=== PATIENT | male | born 1930 | race Caucasian/White ===

== ENCOUNTER 2017-06-20 23:53 | Inpatient (IN) | payer MEDICARE, OTHER ==
[~2017-06-20] VITALS: Ht 172.7 cm; Wt 71.1 kg
[~2017-06-20 23:53] MED LIST: AMIO200T PO; ASPI81TA3 PO; ERGO500014 PO; FURO40TA4 PO; HYDR-3498 PO; MAGN400T28 PO; MEGE400O4 PO; MIDO5TAB19 PO; TICA90TA PO; ZOC10 PO
--- NOTE | 2017-06-21 01:32 | ERD ---
ER Documentation Chief Complaint Chief Complaint shortness of breath when lying down x 2 days HPI The patient is a 87-year-old male, presenting to the ER because of orthopnea for the last 2 days. He has similar symptoms previously, complains of chronic bilateral leg edema. He denies fever, chills, complains of intermittent cough for the last 2-3 days, denies chest pain abdominal pain, vomiting, dysuria, diarrhea. He does not smoke nor drink Past medical history: Dyslipidemia, CAD, COPD, hypertension, atrial fibrillation , chronic kidney disease, ischemic cardiac myopathy with low EF, history of CHF past surgical history: Stent PCI ROS All systems reviewed and are negative except as per history of present illness. Medications Home Meds Active Scripts Midodrine* (Midodrine*) 5 Mg Tab, 2.5 MG PO BID@09,17 for 28 Days, BOX Prov:MENA FLORES MD 03/01/15 Megestrol Acetate* (Megace*) 400 Mg/10 Ml Susp, 400 MG PO BID for 28 Days, BOTTLE Prov:MENA FLORES MD 03/01/15 Amiodarone Hcl* (Amiodarone Hcl*) 200 Mg Tab, 200 MG PO DAILY for 28 Days, BOTTLE Prov:MENA FLORES MD 03/01/15 Reported Medications Ticagrelor* (Brilinta*) 90 Mg Tablet, 90 MG PO Q12, TAB 02/09/15 Simvastatin (Simvastatin) 10 Mg Tablet, 10 MG PO HS, TAB 02/09/15 Magnesium Oxide* (Magnesium Oxide*) 400 Mg Tablet, 400 MG PO BID, TAB 02/09/15 Furosemide* (Furosemide*) 40 Mg Tablet, 40 MG PO DAILY, TAB 02/09/15 Ergocalciferol* (Drisdol* (Vitamin D2)) 50,000 Unit Capsule, 05748 UNITS PO ON MON&FRI, CAP 02/09/15 Aspirin* (Aspirin* Chew) 81 Mg Tab.chew, 81 MG PO DAILY, TAB.CHEW 02/09/15 Hydrocodone Bit-Acetaminophen* ([place]*) 5-325 Mg Tab, 1 TAB PO Q4H Y for PAIN, TAB 02/09/15 Allergies Allergies: Coded Allergies: No Known Allergy (Unverified , 07/24/15) PMhx/Soc History of Surgery: Yes (stent, PCI) Anesthesia Reaction: No Hx Neurological Disorder: No Hx Respiratory Disorders: Yes (COPD, PNA) Hx Cardiac Disorders: Yes (HTN, AFIB, CAD WITH STENT PLACED, NSTEMI, ARF) Hx Psychiatric Problems: No Hx Miscellaneous Medical Probl: No Hx Alcohol Use: No Hx Substance Use: No Hx Tobacco Use: No Physical Exam Vitals Vital Signs Date Time Temp Pulse Resp B/P Pulse Ox O2 Delivery O2 Flow Rate FiO2 06/21/17 02:20 65 28 98 Nasal Cannula 30 06/21/17 01:30 Nasal Cannula 3.0 06/21/17 01:30 98.2 69 23 147/64 94 Nasal Cannula 3.0 06/21/17 01:30 Nasal Cannula 3 06/20/17 23:55 98.2 74 20 160/65 94 Physical Exam Const: No acute distress. Head: Atraumatic. Eyes: Normal Conjunctiva. ENT: Normal External Ears, Nose and Mouth. Neck: Full range of motion. No meningismus. Resp: Bibasilar crackle, bilateral expiratory wheezes Cardio: Regular rate and rhythm. Abd: Soft, non distended, normal bowel sounds, non tender. Skin: No petechiae or rashes. Back: No midline or flank tenderness. Ext: Bilateral leg edema, no calf tenderness Neur: Awake and alert. No focal deficit Psych: Normal Mood and Affect. Result Diagram: 06/21/1715406/21/17154 Results 24 hrs Laboratory Tests Test 06/21/17 01:55 White Blood Count 10.310^3/ul Red Blood Count 3.3310^6/ul Hemoglobin 9.8g/dl Hematocrit 29.7% Mean Corpuscular Volume 89.2fl Mean Corpuscular Hemoglobin 29.4pg Mean Corpuscular Hemoglobin Concent 33.0g/dl Red Cell Distribution Width 14.6% Platelet Count 55339^3/UL Mean Platelet Volume 10.0fl Neutrophils % 70.2% Lymphocytes % 18.0% Monocytes % 9.5% Eosinophils % 1.1% Basophils % 0.7% Nucleated Red Blood Cells % 0.0/100WBC Neutrophils # 7.310^3/ul Lymphocytes # 1.910^3/ul Monocytes # 1.010^3/ul Eosinophils # 0.110^3/ul Basophils # 0.110^3/ul Nucleated Red Blood Cells # 0.010^3/ul Prothrombin Time 13.7Sec Prothrombin Time Ratio 1.1 INR International Normalized Ratio 1.04 Activated Partial Thromboplast Time 28.6Sec Sodium Level 134mmol/L Potassium Level 4.0mmol/L Chloride Level 92mmol/L Carbon Dioxide Level 36mmol/L Anion Gap 10 Blood Urea Nitrogen 23mg/dl Creatinine 1.26mg/dl Glucose Level 111mg/dl Calcium Level 8.9mg/dl Total Bilirubin 0.5mg/dl Direct Bilirubin 0.00mg/dl Indirect Bilirubin 0.5mg/dl Aspartate Amino Transf (AST/SGOT) 42IU/L Alanine Aminotransferase (ALT/SGPT) 51IU/L Alkaline Phosphatase 114IU/L Troponin I 0.016ng/ml B-Type Natriuretic Peptide 653PG/ML Total Protein 6.9g/dl Albumin 3.5g/dl Globulin 3.40g/dl Albumin/Globulin Ratio 1.02 Current Medications Medications (Trade) Dose Ordered Sig/Jet Route PRN Reason Start Time Stop Time Status Last Admin Dose Admin Levalbuterol (Xopenex Neb) 1.25 mg ONCE ONCE N 06/21/17 02:00 06/21/17 02:01 DC 06/21/17 02:26 Ipratropium [place] (Atrovent 0.02% (Neb)) 0.5 mg ONCE ONCE HHN 06/21/17 02:00 06/21/17 02:01 DC 06/21/17 02:26 Furosemide (Lasix) 40 mg ONCE ONCE IV 06/21/17 04:30 06/21/17 04:31 UNV Procedures/MDM EKG: Read by emergency physician Rate/Rhythm: Normal Sinus Rhythm 70 beats/min QRS, ST, T-waves: No ST elevation, no T inversion, 1st AVB, LVH, prolong QT Impression: Abnormal EKG [place] [id number] Radiology Main Line: [phone] DIAGNOSTIC IMAGING REPORT Patient: HUGH SINGH : 1930 Age: 87 Sex: M MR #: [id number] DOS: 06/21/17 0141 Ordering MD: COLTEN GONZALEZ MD Location: E/R Room/Bed: PROCEDURE: XR Chest. CLINICAL INDICATION: Shortness of breath TECHNIQUE: Single frontal view of the chest was obtained COMPARISON: CR CHEST 02/23/2015; CR CHEST 02/21/2015; CR CHEST 02/09/2015 FINDINGS: Enlargement of the cardiac silhouette is again seen. Tortuosity and ectasia thoracic aorta again seen. There is minimal prominence of the lung interstitium likely minimal chronic changes. Hypoinflation lungs and bibasilar atelectasis. The patient is mildly rotated to the right. ECG leads projected over the chest. Calcification in the aortic arch. IMPRESSION: Hypoinflation lungs and bibasilar atelectasis. Enlargement of the cardiac silhouette again seen. Please see above RPTAT: HJES .Alan Mccord MD, MD Date Time Electronically viewed and signed by .Alan Mccord MD, MD on 06/21/2017 02:22 .S/ CC: COLTEN GONZALEZ MD MEDICAL MAKING DECISION: The patient is a 87-year-old male, presenting with acute CHF exacerbation. He was treated with Xopenex 1.25 mg and Atrovent 0.5 mg for wheezing, Lasix 40 mg IV for acute CHF with good response The differential diagnoses considered include but are not limited to asthma, COPD, pneumonia, pulmonary embolus, pleural effusion, congestive heart failure. Departure Diagnosis: Primary Impression: CHF (congestive heart failure) Additional Impression: Anemia Condition: Stable Comments I discussed the findings with the patient. I discussed the patient with the on- call hospitalist Dr. Hernandez at 4:15 AM. who was made aware of the lab, the treatment, the patient condition. The patient is admitted to Tel Disclaimer: Inadvertent spelling and grammatical errors are likely due to EHR/ dictation software use and do not reflect on the overall quality of patient care. Also, please note that the electronic time recorded on this note does not necessarily reflect the actual time of the patient encounter. COLTEN GONZALEZ MD Jun 21, 2017 01:32
[2017-06-21] MEDS ORDERED: LEVALBUTEROL (NEB) 1.25 MG/0.5 ML AMP HHN ONE (02:00)
[2017-06-21] MEDS ORDERED: IPRATROPIUM (NEB) 0.5 MG/2.5 ML AMP HHN ONE (02:00)
--- NOTE | 2017-06-21 02:23 | RADRPT ---
PROCEDURE: XR Chest. CLINICAL INDICATION: Shortness of breath TECHNIQUE: Single frontal view of the chest was obtained COMPARISON: CR CHEST 02/23/2015; CR CHEST 02/21/2015; CR CHEST 02/09/2015 FINDINGS: Enlargement of the cardiac silhouette is again seen. Tortuosity and ectasia thoracic aorta again see n. There is minimal prominence of the lung interstitium likely minimal chronic changes. Hypoinflatio n lungs and bibasilar atelectasis. The patient is mildly rotated to the right. ECG leads projected o kathy the chest. Calcification in the aortic arch. IMPRESSION: Hypoinflation lungs and bibasilar atelectasis. Enlargement of the cardiac silhouette again seen. Ple ase see above RPTAT: HJES .Alan Mccord MD, Date Time Electronically viewed and signed by .Alan Mccord MD, on 06/21/2017 02:22 .S/
[2017-06-21 02:51] LABS: INR 1.04; PROTIME 13.7 Sec (11.9-14.9); PT RATIO 1.1
[2017-06-21 02:52] LABS: PARTIAL THROMBOPLASTIN TIME 28.6 Sec (25.0-35.0)
[2017-06-21 02:56] LABS: ALBUMIN 3.5 g/dl (3.3-4.9); ALBUMIN/GLOBULIN RATIO 1.02; BILIRUBIN,INDIRECT 0.5 mg/dl (0-1.1); BILIRUBIN,TOTAL 0.5 mg/dl (0.2-1.3); CALCIUM 8.9 mg/dl (8.4-10.2); CREATININE 1.26 mg/dl (0.61-1.24); TOTAL PROTEIN 6.9 g/dl (6.1-8.1)
[2017-06-21 03:07] LABS: TROPONIN-I 0.016 ng/ml (0.00-0.12)
[2017-06-21 03:28] LABS: BASOPHIL # 0.1 10^3/ul (0.0-0.1); BASOPHILS % 0.7 % (0.0-2.0); EOSINOPHILS # 0.1 10^3/ul (0.0-0.5); EOSINOPHILS % 1.1 % (0.0-7.0); HEMATOCRIT 29.7 % (42.0-52.0); HEMOGLOBIN 9.8 g/dl (14.0-18.0); LYMPHOCYTES # 1.9 10^3/ul (0.8-2.9); MEAN CORPUSCULAR HEMOGLOBIN 29.4 pg (29.0-33.0); MEAN CORPUSCULAR VOLUME 89.2 fl (82.0-101.0); MONOCYTES % 9.5 % (0.0-11.0); NEUTROPHIL # 7.3 10^3/ul (1.6-7.5); NEUTROPHILS % 70.2 % (39.0-77.0); PLATELET COUNT 213 10^3/UL (140-415); RED BLOOD COUNT 3.33 10^6/ul (4.70-6.10); RED CELL DISTRIBUTION WIDTH 14.6 % (11.5-14.5); WHITE BLOOD COUNT 10.3 10^3/ul (4.8-10.8)
[2017-06-21] MEDS ORDERED: FUROSEMIDE 40 MG INJ IV ONE (04:30)
--- NOTE | 2017-06-21 08:53 | HP ---
Date/Time of Note Date/Time of Note DATE: 06/21/17 TIME: 08:49 Assessment/Plan VTE Prophylaxis VTE Prophylaxis Intervention: heparin Assessment/Plan Assessment/Plan ASSESSMENT 87-year-old male with extensive cardiac history including ischemic cardiomyopathy with EF of 45% in 2014, CKD, CAD with stent, hypertension, diabetes, dyslipidemia, COPD, A. fib and history of skin cancer on scalp status post surgery who presented to the ER was shortness of breath, bilateral lower extremity swelling and productive cough, likely a combination of CHF and COPD exacerbation with a possible underlying pneumonia PLAN Admit to telemetry unit He will be continued with his medications with adjustment as needed IV Lasix, supplemental oxygen, bronchodilators, steroid and antibiotic Obtain a 2D echo Cardiology consult Respiratory culture Continue insulin for diabetes HPI/ROS Admit Date/Time Admit Date/Time Hx of Present Illness This is an 87-year-old male with a history of ischemic cardiomyopathy with EF of 45% in 2014, CAD with stent, hypertension, dyslipidemia, diabetes, COPD, atrial fibrillation, skin cancer on skull status post surgery. Patient presented to the ER was progressively worsening shortness of breath and bilateral lower extremity swelling. He also reported cough was occasionally productive of yellow sputum. He denies any chest pain When he presented to the ER, chest x-ray shows hypoinflated lungs, bibasilar atelectasis and increased cardiac silhouette. His first troponin is negative and EKG no ST-T wave abnormalities. Patient was given Lasix and had increased urine output while he was in the ER. By the time I saw him he said he was already feeling better. PMH/Family/Social Social History Smoking Status: Former smoker Exam/Review of Systems Vital Signs Vitals Vital Signs Date Time Temp Pulse Resp B/P Pulse Ox O2 Delivery O2 Flow Rate FiO2 06/21/17 06:30 66 110/53 94 Nasal Cannula 3.0 06/21/17 02:20 28 30 06/21/17 01:30 98.2 Exam Constitutional: distress Head: atraumatic, normocephalic Eyes: PERRL Respiratory: diminished breath sounds Cardiovascular: nl pulses, regular rate and rhythm Gastrointestinal: soft Extremities: edema Labs Result Diagram: 06/21/17 0155 06/21/17 0155 SERA CORREA MD Jun 21, 2017 08:53
[2017-06-21] MEDS ORDERED: MEGESTROL PO SCH (09:00)
[2017-06-21] MEDS ORDERED: morphine 2 MG INJ IV PRN (09:00)
[2017-06-21] MEDS ORDERED: NITROGLYCERIN (SL) 0.4 MG TAB SL PRN (09:00)
[2017-06-21] MEDS ORDERED: HYDROCODONE/APAP (5/325) TAB PO PRN (09:00)
[2017-06-21] MEDS ORDERED: LORAZEPAM 0.5 MG TAB PO PRN (09:00)
[2017-06-21] MEDS ORDERED: ALBUTEROL/IPRATROPIUM (NEB) 3 ML AMP HHN PRN (09:00)
[2017-06-21] MEDS: TICAGRELOR 90 MG TABLET PO SCH ×2 (09:00→21:07)
[2017-06-21] MEDS ORDERED: NACL 0.9% 3 ML SYG IV SCH (09:00)
[2017-06-21] MEDS ORDERED: MIDODRINE 5 MG TAB PO SCH (09:00)
[2017-06-21] MEDS ORDERED: ONDANSETRON 4 MG INJ IV PRN (09:00)
[2017-06-21 11:13] LABS: CREATINE KINASE 144 IU/L (23-200)
[2017-06-21 11:40] LABS: CK-MB 2.42 ng/ml (0.0-2.4); TROPONIN-I < 0.012 ng/ml (0.00-0.12)
[2017-06-21] MEDS: FUROSEMIDE 40 MG INJ IV SCH (12:41)
[2017-06-21] MEDS: ASPIRIN 81 MG TAB PO SCH (12:41)
[2017-06-21] MEDS: METHYLPREDNISOLONE 40 MG INJ IV SCH (12:41)
[2017-06-21] MEDS: MAGNESIUM OXIDE 400 MG TAB PO SCH ×2 (12:42→21:47)
[2017-06-21] MEDS: AMIODARONE 200 MG TAB PO SCH (12:42)
[2017-06-21] MEDS: MIDODRINE 2.5 MG TAB PO SCH ×2 (12:44→17:55)
[2017-06-21 12:47] VITALS: TEMP 97.9
[2017-06-21] MEDS ORDERED: CLOP75TA27 PO (12:49)
[2017-06-21] MEDS ORDERED: TERA2CAP3 PO (12:50)
[2017-06-21] MEDS ORDERED: ATOR20TA38 PO (12:50)
[2017-06-21] MEDS ORDERED: FLUT1BLS INHALATION (12:51)
[2017-06-21] MEDS ORDERED: TIOT18CA INHALATION (12:51)
[2017-06-21] MEDS ORDERED: IMIP25TA3 PO (12:51)
[2017-06-21] MEDS ORDERED: MAGN500T7 PO (12:54)
[2017-06-21] MEDS: LEVOFLOXACIN 500MG/D5W (PMX) 100 ML IVPB SCH (12:57)
[2017-06-21] MEDS ORDERED: GLUCOSE GEL 15 GRAM TUBE BUCCAL PRN (15:00)
[2017-06-21] MEDS ORDERED: GLUCAGON 1 MG INJ IM PRN (15:00)
[2017-06-21] MEDS ORDERED: GLUCOSE GEL 15 GRAM TUBE PO PRN ×2 (15:00)
[2017-06-21] MEDS ORDERED: DEXTROSE 50% 50 ML SYRINGE IV PRN ×2 (15:00)
[2017-06-21 15:34] LABS: CREATINE KINASE 140 IU/L (23-200)
[2017-06-21 15:48] LABS: CK-MB 2.19 ng/ml (0.0-2.4); TROPONIN-I < 0.012 ng/ml (0.00-0.12)
[2017-06-21 15:53] LABS: AADO2 Arterial 51.2 mmHg (7.0-24.0); Allen Test ACCEPTAB; Arterial Base Excess 7.4 mmol/L (-3.0-3); Arterial COHb 0.3 % (0.0-3.0); Arterial Fraction of Oxyhgb 96.5 % (93.0-99.0); Arterial HCO3 31.9 mmol/L (22.0-26.0); Arterial MetHb 0.3 % (0.0-1.5); MODE NASAL CANNULA
[2017-06-21] MEDS: ALBUTEROL/IPRATROPIUM (NEB) 3 ML AMP HHN SCH (17:00)
[2017-06-21 19:21] VITALS: PULSE 71
[2017-06-21 20:12] VITALS: PULSE 72
[2017-06-21 20:18] VITALS: BP 124/59; RESP 19
[2017-06-21 21:00] VITALS: Ht 172.7 cm; Wt 71.1 kg
[2017-06-21] MEDS: INSULIN ASPART [NOVOLOG] 3 ML PEN SC SCH (21:00)
[2017-06-21] MEDS: MEGESTROL (40 MG/ML) 10ML CUP PO SCH ×2 (21:00→21:06)
[2017-06-21] MEDS ORDERED: ATORVASTATIN 10 MG TAB PO SCH (21:00)
[2017-06-22] VITALS (12 sets, daily range): BP systolic 104–129; BP diastolic 52–59; PULSE 63–74; RESP 16–20
[2017-06-22] MEDS: ACCU-CHEK XX SCH (02:00)
--- NOTE | 2017-06-22 05:50 | CONS ---
Date/Time of Note Date/Time of Note DATE: 06/22/17 TIME: 05:49 Assessment/Plan Assessment/Plan Additional Assessment/Plan Assessment: 1. Acute on chronic systolic/diastolic heart failure 2. COPD exacerbation with possible acute bronchitis 3. Ischemic cardiomyopathy with last LVEF 45%, s/p remote PCI 01/25 (incomplete data) 4. CKD 5. Suspect h/o symptomatic orthostatic hypotension, on Midodrine 6. DM 7. Reported history of atrial fibrillation, currently in sinus on Amiodarone 8. Dyslipidemia Plan: Monitor on telemetry Check echocardiogram this am Continue Lasix 40 mg IV daily, should be able to convert to po tomorrow Continue Amiodarone 200 mg daily, try to clarify h/o a.fib For now, continue ASA 81 mg daily and Brilinta. Indications for dual antiplatelet therapy this far removed from last PCI (2014) is unclear. Try to clarify history with family Continue Lipitor 10 mg qhs Continue Midodrine 2.5 mg bid Continue O2, steroids, BD, Abx per primary team Glycemic control per primary team Consultation Date/Type/Reason Admit Date/Time Date of Consultation: Jun 22, 2017 Type of Consultation: Cardiology Reason for Consultation CHF, CAD Referring Provider: MALAIKA PABLO NP Hx of Present Illness This is an 87-year-old male with a history of ischemic cardiomyopathy with EF of 45% in 01/2015, CAD with stent 01/2015 (incomplete data), dyslipidemia, diabetes, COPD, atrial fibrillation (?paroxysmal) who presented to the ER with progressively worsening shortness of breath and bilateral lower extremity swelling. He also reported cough was occasionally productive of yellow sputum. The symptoms were gradually worsening over the past 2 days. He now feels somewhat better. Still notes a productive cough, less labored breathing. He denies any chest pain. He states he is uncomfortable in bed. No PND or orthopnea. No presyncope or syncope. Upon review of the patient's medications, he appears to still be on dual antiplatelet therapy. He is also on Midodrine, the patient states this "helps raise" his BP. Please see HPI Past Medical History Ischemic cardiomyopathy with LVEF 45% in 01/2015 CAD s/p PCI 01/2015 (incomplete data) Hypertension Orthostatic hypootension Dyslipidemia Diabetes COPD Atrial fibrillation (incomplete data) Skin cancer, scalp status post surgery Family History Significant Family History: no pertinent family hx Social History Alcohol Use: none Smoking Status: Former smoker Drug Use: none Exam/Review of Systems Vital Signs Vitals Vital Signs Date Time Temp Pulse Resp B/P Pulse Ox O2 Delivery O2 Flow Rate FiO2 06/22/17 04:47 97.9 63 20 129/56 95 06/21/17 20:00 Nasal Cannula 4.0 06/21/17 17:40 32 Exam Constitutional: alert, oriented, other (Dominican-speaking) Psych: nl mood/affect, no complaints Head: atraumatic, normocephalic Neck: jvd (12 cm H20), non-tender, supple, No bruits Respiratory: crackles/rales (coarse upper rhonchi), normal air movement, No wheezing Cardiovascular: nl pulses, regular rate and rhythm, systolic murmur (2/6 HSM at apex and LLSB), No edema, No gallop, No rub Gastrointestinal: bowel sounds, nl liver, spleen, non-tender, soft Extremities: No calf tenderness, No clubbing, No cyanosis, No edema Skin: nl turgor, No rash or lesions Results EKG 06/21/17 0338: NSR with 1 AV block, mild prolongation of QTc, no ischemic ST-T changes Result Diagram: 06/21/17 0155 06/21/17 0155 Results 24 hrs Laboratory Tests Test 06/21/17 10:40 06/21/17 14:27 06/21/17 14:52 06/21/17 18:09 Creatine Kinase 144 140 Creatine Kinase Index 1.7 1.6 Creatinine Kinase MB (Mass) 2.42 H 2.19 Troponin I < 0.012 < 0.012 Blood Gas Specimen Source Blood arterial Arterial Blood Date Drawn 06/21/2017 3:42:31 PM Arterial Blood pH (Temp corrected) 7.472 H Arterial Blood pCO2 (Temp correct) 44.6 Arterial Blood pO2 (Temp corrected) 88.6 Arterial Blood HCO3 31.9 H Arterial Blood Base Excess 7.4 H Arterial Blood Oxygen Saturation 97.1 Mark Test ACCEPTAB Arterial Blood Gas Puncture Site Left Radial Arterial Blood Carboxyhemoglobin 0.3 Arterial Blood Methemoglobin 0.3 Blood Gas A-a O2 Differential 51.2 H Oxyhemoglobin Percent 96.5 Total Hemoglobin 11.0 L Blood Gas Temperature 37.0 Blood Gas Actual Respiration Rate 18 Blood Gas Modality NASAL CANNULA FiO2 27.0 Blood Gas Notified Whom [place] ESTES RCP Blood Gas Notified Time 06/21/2017 3:53:04 PM Bedside Glucose 173 Test 06/21/17 20:50 Bedside Glucose 168 Imaging Free Text/Dictation CXR: Cardiomegaly. Tortuosity and ectatic thoracic aorta. There is minimal prominence of the lung interstitium likely minimal chronic changes. Hypoinflation lungs and bibasilar atelectasis. Calcification in the aortic arch. Medications Medications Current Medications Lorazepam (Ativan) 0.5 mg Q8H PRN PO ANXIETY; Start 06/21/17 at 09:00 Ondansetron HCl (Zofran Inj) 4 mg Q6H PRN IV NAUSEA AND/OR VOMITING; Start 06/21/17 at 09:00 Furosemide (Lasix) 40 mg DAILY IV Last administered on 06/21/17 12:41; Admin Dose 40 MG; Start 06/21/17 at 09:00 Nitroglycerin (Nitroglycerin (Sl Tab) 0.4 Mg) 1 tab Q5M PRN SL CHEST PAIN; Start 06/21/17 at 09:00 Morphine Sulfate (morphine) 2 mg Q4H PRN IV PAIN LEVEL 7-10; Start 06/21/17 at 09:00 Amiodarone HCl (Cordarone) 200 mg DAILY PO Last administered on 06/21/17 12:42 ; Admin Dose 200 MG; Start 06/21/17 at 09:00 Aspirin (Aspirin) 81 mg DAILY PO Last administered on 06/21/17 12:41; Admin Dose 81 MG; Start 06/21/17 at 09:00 Acetaminophen/ Hydrocodone Bitart ([place] (5/325)) 1 tab Q4H PRN PO PAIN; Start 06/21/17 at 09:00 Magnesium Oxide (Mag-Ox 400) 400 mg BID PO Last administered on 06/21/17 21:47 ; Admin Dose 400 MG; Start 06/21/17 at 09:00 Ticagrelor (Brilinta) 90 mg Q12 PO Last administered on 06/21/17 21:07; Admin Dose 90 MG; Start 06/21/17 at 09:00 Atorvastatin Calcium 10 mg 10 mg DAILY@21 PO Last administered on 06/21/17 21: 05; Admin Dose 10 MG; Start 06/21/17 at 21:00 Levofloxacin/ Dextrose (Levaquin 500mg/ D5W 100 ml (Pmx)) 100 ml @ 100 mls/hr DAILY IVPB Last administered on 06/21/17 12:57; Admin Dose 100 MLS/HR; Start 06/21/17 at 09:00 Methylprednisolone Sodium Succinate (Solu-Medrol) 40 mg DAILY IV Last administered on 06/21/17 12:41; Admin Dose 40 MG; Start 06/21/17 at 09:00 Midodrine (Proamatine) 2.5 mg BID@ PO Last administered on 06/21/17 17:55 ; Admin Dose 2.5 MG; Start 06/21/17 at 09:30 Diagnostic Test (Pha) (Accu-Chek) 1 ea 02 XX ; Start 06/22/17 at 02:00 Miscellaneous Information 1 ea NOTE XX ; Start 06/21/17 at 15:00 Glucose (Glutose) 15 gm Q15M PRN PO DECREASED GLUCOSE; Start 06/21/17 at 15:00 Glucose (Glutose) 22.5 gm Q15M PRN PO DECREASED GLUCOSE; Start 06/21/17 at 15: 00 Dextrose (D50w Syringe) 25 ml Q15M PRN IV DECREASED GLUCOSE; Start 06/21/17 at 15:00 Dextrose (D50w Syringe) 50 ml Q15M PRN IV DECREASED GLUCOSE; Start 06/21/17 at 15:00 Glucagon (Glucagen) 1 mg Q15M PRN IM DECREASED GLUCOSE; Start 06/21/17 at 15:00 Glucose (Glutose) 15 gm Q15M PRN BUCCAL DECREASED GLUCOSE; Start 06/21/17 at 15 :00 Megestrol Acetate (Megace Susp) 400 mg BID PO ; Start 06/21/17 at 21:00 JAME RAMIREZ MD Jun 22, 2017 05:50
[2017-06-22 06:39] LABS: HEMATOCRIT 29.5 % (42.0-52.0); HEMOGLOBIN 9.8 g/dl (14.0-18.0); LYMPHOCYTES # 0.7 10^3/ul (0.8-2.9); LYMPHOCYTES % 8.3 % (15.0-51.0); MEAN CORPUSCULAR HEMOGLOBIN 29.2 pg (29.0-33.0); MEAN CORPUSCULAR HGB CONC 33.2 g/dl (32.0-37.0); MEAN CORPUSCULAR VOLUME 87.8 fl (82.0-101.0); MEAN PLATELET VOLUME 9.5 fl (7.4-10.4); MONOCYTE # 0.4 10^3/ul (0.3-0.9); MONOCYTES % 4.5 % (0.0-11.0); NEUTROPHIL # 7.7 10^3/ul (1.6-7.5); NEUTROPHILS % 86.4 % (39.0-77.0); PLATELET COUNT 217 10^3/UL (140-415); RED BLOOD COUNT 3.36 10^6/ul (4.70-6.10); RED CELL DISTRIBUTION WIDTH 14.4 % (11.5-14.5)
[2017-06-22 07:15] LABS: ALBUMIN 3.3 g/dl (3.3-4.9); ALBUMIN/GLOBULIN RATIO 0.97; BILIRUBIN,INDIRECT 0.7 mg/dl (0-1.1); BILIRUBIN,TOTAL 0.7 mg/dl (0.2-1.3); CALCIUM 8.8 mg/dl (8.4-10.2); CHOL/HDL RATIO 2.2 RATIO; CREATININE 1.18 mg/dl (0.61-1.24); MAGNESIUM 2.1 mg/dl (1.7-2.5); POTASSIUM 3.8 mmol/L (3.5-5.1); TOTAL PROTEIN 6.7 g/dl (6.1-8.1)
[2017-06-22 07:41] LABS: THYROID STIMULATING HORMONE 0.682 MIU/L (0.465-4.680)
[2017-06-22] MEDS: INSULIN ASPART [NOVOLOG] 3 ML PEN SC SCH ×4 (08:00→20:26)
[2017-06-22] MEDS: LEVOFLOXACIN 500MG/D5W (PMX) 100 ML IVPB SCH (09:09)
[2017-06-22] MEDS: MAGNESIUM OXIDE 400 MG TAB PO SCH ×2 (09:11→20:27)
[2017-06-22] MEDS: MEGESTROL (40 MG/ML) 10ML CUP PO SCH ×3 (09:11→21:00)
[2017-06-22] MEDS: ASPIRIN 81 MG TAB PO SCH (09:11)
[2017-06-22] MEDS: FUROSEMIDE 40 MG INJ IV SCH (09:12)
[2017-06-22] MEDS: METHYLPREDNISOLONE 40 MG INJ IV SCH (09:12)
[2017-06-22] MEDS: AMIODARONE 200 MG TAB PO SCH (09:12)
[2017-06-22] MEDS: TICAGRELOR 90 MG TABLET PO SCH (09:12)
[2017-06-22] MEDS: MIDODRINE 2.5 MG TAB PO SCH ×2 (09:15→17:19)
[2017-06-22] MEDS: ALBUTEROL/IPRATROPIUM (NEB) 3 ML AMP HHN SCH ×4 (09:30→20:08)
--- NOTE | 2017-06-22 10:40 | PN ---
Date/Time of Note Date/Time of Note DATE: 06/22/17 TIME: 10:20 Assessment/Plan VTE Prophylaxis VTE Prophylaxis Intervention: SCD's Lines/Catheters IV [facility]from [facility]): Saline Lock Urinary Cath still in place: No Assessment/Plan Chief Complaint/Hosp Course 87-year-old male with multiple comorbidities, presented to the emergency room for evaluation of BLE swelling and shortness of breath upon exertion with productive cough. 1. Acute on chronic systolic/diastolic heart failure Status: Acute on chronic. -Continue diuresis. Insert Curtis and monitor I&O closely. -Follow-up with 2D echocardiogram. 2. COPD exacerbation with possible acute bronchitis versus pneumonia. Status: Acute on chronic. -Continue empiric Levaquin. Obtain sputum culture. -Continue low-dose steroids, [id number] bronchodilators and oxygen as needed. 3. Ischemic cardiomyopathy with last LVEF 45%, s/p PCI 01/25 -Continue outpatient management. Please note that patient has not been taking Brilinta and he is on aspirin and Plavix as outpatient which we will resume. 4. Anemia of chronic illness. Status: Chronic. -H&H stable. Will monitor. 5. History of prostate disorders. Status: Chronic. -On Hytrin-Will add a PSA level 6. Prediabetes with A1c 6.0. Status: Chronic. -Carbohydrate controlled diet. Accu-Cheks/ISS in-house. 7. Dyslipidemia Status: Chronic. -On statin. DVT prophylaxis: SCDs PUD prophylaxis: Pepcid. I have discussed with patient's family regarding home medications. Patient has not been taking Brilinta. He is on aspirin and Plavix at home. Patient also does not take amiodarone and he did not have any recurrence of atrial fibrillation for the last few years. Patient was seen in collaboration with Dr. Young. Problems: Subjective 24 Hr Interval Summary Free Text/Dictation Overall improving gradually. Continues to have shortness of breath upon exertion with productive cough. Denies chest pain or palpitation. Exam/Review of Systems Vital Signs Vitals Vital Signs Date Time Temp Pulse Resp B/P Pulse Ox O2 Delivery O2 Flow Rate FiO2 06/22/17 08:11 98.0 73 20 108/59 95 06/21/17 20:00 Nasal Cannula 4.0 06/21/17 17:40 32 Exam General: Chronically ill looking male with mild shortness of breath upon exertion. HEENT: Normocephalic, Atraumatic, No laceration or hematoma; Eyes: PEERL, Conjunctiva clear, Anicteric sclera Neck: Supple without any lymphadenopathy, nontender, no JVD, no carotid bruits, trachea midline, no thyromegaly Cardiac: Elevated JVD. S1, S2 auscultated, regular rhythm and rate, no mumurs or gallop Pulmonary: Crackles/Rales. MORRIS+ GI: Abdomen normal to inspection. Soft, non tender, non- distended, no masses, no rebound tenderness or guarding. Bowel sounds active on all four quadrants Genitourinary: Deferred Extremities: WEAK. No cyanosis, clubbing, or edema. Pulses [2+] bilaterally. Full ROM on all four extremities. No focal weakness appreciated. Neurologic: Alert to person, place, time, and situation. Affect appropriate, intact sensation. Skin: Clean,dry, and intact. No ecchymosis, no rashes, or lesions Results Result Diagram: 06/22/1724 06/22/17 0624 Results 24 hrs Laboratory Tests Test 06/21/17 10:40 06/21/17 14:27 06/21/17 14:52 06/21/17 18:09 Creatine Kinase 144 140 Creatine Kinase Index 1.7 1.6 Creatinine Kinase MB (Mass) 2.42 H 2.19 Troponin I < 0.012 < 0.012 Blood Gas Specimen Source Blood arterial Arterial Blood Date Drawn 06/21/2017 3:42:31 PM Arterial Blood pH (Temp corrected) 7.472 H Arterial Blood pCO2 (Temp correct) 44.6 Arterial Blood pO2 (Temp corrected) 88.6 Arterial Blood HCO3 31.9 H Arterial Blood Base Excess 7.4 H Arterial Blood Oxygen Saturation 97.1 Mark Test ACCEPTAB Arterial Blood Gas Puncture Site Left Radial Arterial Blood Carboxyhemoglobin 0.3 Arterial Blood Methemoglobin 0.3 Blood Gas A-a O2 Differential 51.2 H Oxyhemoglobin Percent 96.5 Total Hemoglobin 11.0 L Blood Gas Temperature 37.0 Blood Gas Actual Respiration Rate 18 Blood Gas Modality NASAL CANNULA FiO2 27.0 Blood Gas Notified Whom [place] ESTES RCP Blood Gas Notified Time 06/21/2017 3:53:04 PM Bedside Glucose 173 Test 06/21/17 20:50 06/22/17 06:24 06/22/17 08:11 Bedside Glucose 168 135 White Blood Count 9.0 Red Blood Count 3.36 L Hemoglobin 9.8 L Hematocrit 29.5 L Mean Corpuscular Volume 87.8 Mean Corpuscular Hemoglobin 29.2 Mean Corpuscular Hemoglobin Concent 33.2 Red Cell Distribution Width 14.4 Platelet Count 217 Mean Platelet Volume 9.5 Neutrophils % 86.4 H Lymphocytes % 8.3 L Monocytes % 4.5 Eosinophils % 0.0 Basophils % 0.0 Nucleated Red Blood Cells % 0.0 Neutrophils # 7.7 H Lymphocytes # 0.7 L Monocytes # 0.4 Eosinophils # 0.0 Basophils # 0.0 Nucleated Red Blood Cells # 0.0 Sodium Level 137 Potassium Level 3.8 Chloride Level 90 L Carbon Dioxide Level 40 H Anion Gap 11 Blood Urea Nitrogen 27 H Creatinine 1.18 Glucose Level 137 Hemoglobin A1c 6.0 H Calcium Level 8.8 Magnesium Level 2.1 Total Bilirubin 0.7 Direct Bilirubin 0.00 Indirect Bilirubin 0.7 Aspartate Amino Transf (AST/SGOT) 39 Alanine Aminotransferase (ALT/SGPT) 53 Alkaline Phosphatase 83 Total Protein 6.7 Albumin 3.3 Globulin 3.40 H Albumin/Globulin Ratio 0.97 Triglycerides Level 30 Cholesterol Level 117 LDL Cholesterol, Calculated 59 HDL Cholesterol 52 Cholesterol/HDL Ratio 2.2 Thyroid Stimulating Hormone (TSH) 0.682 Medications Medications Current Medications Lorazepam (Ativan) 0.5 mg Q8H PRN PO ANXIETY; Start 06/21/17 at 09:00 Ondansetron HCl (Zofran Inj) 4 mg Q6H PRN IV NAUSEA AND/OR VOMITING; Start 06/21/17 at 09:00 Furosemide (Lasix) 40 mg DAILY IV Last administered on 06/22/17 09:12; Admin Dose 40 MG; Start 06/21/17 at 09:00 Nitroglycerin (Nitroglycerin (Sl Tab) 0.4 Mg) 1 tab Q5M PRN SL CHEST PAIN; Start 06/21/17 at 09:00 Morphine Sulfate (morphine) 2 mg Q4H PRN IV PAIN LEVEL 7-10; Start 06/21/17 at 09:00 Amiodarone HCl (Cordarone) 200 mg DAILY PO Last administered on 06/22/17 09: 12; Admin Dose 200 MG; Start 06/21/17 at 09:00 Aspirin (Aspirin) 81 mg DAILY PO Last administered on 06/22/17 09:11; Admin Dose 81 MG; Start 06/21/17 at 09:00 Acetaminophen/ Hydrocodone Bitart ([place] (5/325)) 1 tab Q4H PRN PO PAIN; Start 06/21/17 at 09:00 Magnesium Oxide (Mag-Ox 400) 400 mg BID PO Last administered on 06/22/17 09: 11; Admin Dose 400 MG; Start 06/21/17 at 09:00 Ticagrelor (Brilinta) 90 mg Q12 PO Last administered on 06/22/17 09:12; Admin Dose 90 MG; Start 06/21/17 at 09:00 Atorvastatin Calcium 10 mg 10 mg DAILY@21 PO Last administered on 06/21/17 21: 05; Admin Dose 10 MG; Start 06/21/17 at 21:00 Levofloxacin/ Dextrose (Levaquin 500mg/ D5W 100 ml (Pmx)) 100 ml @ 100 mls/hr DAILY IVPB Last administered on 06/22/17 09:09; Admin Dose 100 MLS/HR; Start 06/21/17 at 09:00 Methylprednisolone Sodium Succinate (Solu-Medrol) 40 mg DAILY IV Last administered on 06/22/17 09:12; Admin Dose 40 MG; Start 06/21/17 at 09:00 Midodrine (Proamatine) 2.5 mg BID@ PO Last administered on 06/22/17 09: 15; Admin Dose 2.5 MG; Start 06/21/17 at 09:30 Diagnostic Test (Pha) (Accu-Chek) 1 ea 02 XX ; Start 06/22/17 at 02:00 Miscellaneous Information 1 ea NOTE XX ; Start 06/21/17 at 15:00 Glucose (Glutose) 15 gm Q15M PRN PO DECREASED GLUCOSE; Start 06/21/17 at 15:00 Glucose (Glutose) 22.5 gm Q15M PRN PO DECREASED GLUCOSE; Start 06/21/17 at 15: 00 Dextrose (D50w Syringe) 25 ml Q15M PRN IV DECREASED GLUCOSE; Start 06/21/17 at 15:00 Dextrose (D50w Syringe) 50 ml Q15M PRN IV DECREASED GLUCOSE; Start 06/21/17 at 15:00 Glucagon (Glucagen) 1 mg Q15M PRN IM DECREASED GLUCOSE; Start 06/21/17 at 15:00 Glucose (Glutose) 15 gm Q15M PRN BUCCAL DECREASED GLUCOSE; Start 06/21/17 at 15 :00 Megestrol Acetate (Megace Susp) 400 mg BID PO Last administered on 06/22/17t 09:11; Admin Dose 400 MG; Start 06/21/17 at 21:00 MALAIKA PABLO NP Jun 22, 2017 10:33
[2017-06-22] MEDS: FAMOTIDINE 20 MG TAB PO SCH (20:27)
[2017-06-22] MEDS: ATORVASTATIN 20 MG TAB PO SCH (20:27)
[2017-06-23] VITALS (12 sets, daily range): BP systolic 112–140; BP diastolic 51–70; PULSE 71–103; RESP 18–20
[2017-06-23] MEDS: ALBUTEROL/IPRATROPIUM (NEB) 3 ML AMP HHN SCH ×6 (01:14→20:30)
[2017-06-23] MEDS: ACCU-CHEK XX SCH ×2 (02:00→22:30)
[2017-06-23] MEDS: INSULIN ASPART [NOVOLOG] 3 ML PEN SC SCH ×4 (08:00→22:30)
[2017-06-23 08:25] LABS: HEMATOCRIT 29.1 % (42.0-52.0); HEMOGLOBIN 9.8 g/dl (14.0-18.0); LYMPHOCYTES # 0.6 10^3/ul (0.8-2.9); LYMPHOCYTES % 4.8 % (15.0-51.0); MEAN CORPUSCULAR HEMOGLOBIN 29.5 pg (29.0-33.0); MEAN CORPUSCULAR HGB CONC 33.7 g/dl (32.0-37.0); MEAN CORPUSCULAR VOLUME 87.7 fl (82.0-101.0); MEAN PLATELET VOLUME 9.5 fl (7.4-10.4); MONOCYTE # 0.9 10^3/ul (0.3-0.9); MONOCYTES % 7.1 % (0.0-11.0); NEUTROPHILS % 87.6 % (39.0-77.0); PLATELET COUNT 220 10^3/UL (140-415); RED BLOOD COUNT 3.32 10^6/ul (4.70-6.10); RED CELL DISTRIBUTION WIDTH 14.5 % (11.5-14.5); WHITE BLOOD COUNT 12.6 10^3/ul (4.8-10.8)
[2017-06-23 08:42] LABS: CALCIUM 8.9 mg/dl (8.4-10.2); CREATININE 1.27 mg/dl (0.61-1.24); MAGNESIUM 2.2 mg/dl (1.7-2.5); POTASSIUM 3.4 mmol/L (3.5-5.1)
[2017-06-23] MEDS: CLOPIDOGREL 75 MG TAB PO SCH (08:49)
[2017-06-23] MEDS: METHYLPREDNISOLONE 40 MG INJ IV SCH (08:49)
[2017-06-23] MEDS: ASPIRIN 81 MG TAB PO SCH (08:49)
[2017-06-23] MEDS: MAGNESIUM OXIDE 400 MG TAB PO SCH (08:49)
[2017-06-23] MEDS: FUROSEMIDE 40 MG INJ IV SCH (08:50)
[2017-06-23] MEDS: TIOTROPIUM 18 MCG CAPSULE INHA DEV INH SCH (08:51)
[2017-06-23] MEDS: LEVOFLOXACIN 500MG/D5W (PMX) 100 ML IVPB SCH (08:51)
[2017-06-23] MEDS: MEGESTROL (40 MG/ML) 10ML CUP PO SCH ×2 (08:55→22:19)
[2017-06-23] MEDS: MIDODRINE 2.5 MG TAB PO SCH ×2 (09:00→17:04)
--- NOTE | 2017-06-23 09:58 | PN ---
Date/Time of Note Date/Time of Note DATE: 06/23/17 TIME: 09:50 Assessment/Plan VTE Prophylaxis VTE Prophylaxis Intervention: SCD's Lines/Catheters [facility] Saline Lock Urinary Cath still in place: Yes Reason Cath still needed: other (indicate) Assessment/Plan Chief Complaint/Hosp Course 87-year-old male with multiple comorbidities, presented to the emergency room for evaluation of BLE swelling and shortness of breath upon exertion with productive cough. 1. Acute on chronic systolic/diastolic heart failure. Symptoms resolved. Status: Acute on chronic. -Monitor I&O closely. Hold Lasix today -Follow-up with 2D echocardiogram. 2. COPD exacerbation with possible acute bronchitis versus pneumonia. Clinically improved. Status: Acute on chronic. -Continue empiric Levaquin. Follow-up sputum culture. -Continue low-dose steroids, [id number] bronchodilators and oxygen as needed. 3. Metabolic alkalosis, likely contraction alkalosis vs 2/2 magnesium oxide. Status: Acute. -Hold Lasix and magnesium oxide. 4. OSMAN on likely CKD. OSMAN likely 2/2 hemodynamics/Diuretics-indued. Status:Acute -Renal US. Monitor renal fxn closely. Nephrology consult if indicated. 5. Ischemic cardiomyopathy with last LVEF 45%, s/p PCI 01/25 -Continue outpatient management. Please note that patient has not been taking Brilinta and he is on aspirin and Plavix as outpatient which we will resume. 6. Anemia of chronic illness. Status: Chronic. -H&H stable. Will monitor. 7. Reported history of prostate disorders. Status: Chronic. -On Hytrin-PSA normal. 8. Prediabetes with A1c 6.0. Status: Chronic. -Carbohydrate controlled diet. Accu-Cheks/ISS in-house. 9. Dyslipidemia Status: Chronic. -On statin. DVT prophylaxis: SCDs PUD prophylaxis: Pepcid. Patient was seen in collaboration with Problems: Subjective 24 Hr Interval Summary Free Text/Dictation Overall, patient is doing well clinically. With normal work of breathing. Negative fluid balance over 24 hours. Exam/Review of Systems Vital Signs Vitals Vital Signs Date Time Temp Pulse Resp B/P Pulse Ox O2 Delivery O2 Flow Rate FiO2 06/23/17 08:00 98.6 82 20 126/58 94 06/23/17 04:48 Nasal Cannula 2.0 06/21/17 17:40 32 Intake and Output 06/22/17 06/22/17 06/23/17 15:00 23:00 07:00 Intake Total 400 ml 800 ml 120 ml Output Total 300 ml 950 ml 480 ml Balance 100 ml -150 ml -360 ml Exam General: Chronically ill looking male with mild shortness of breath upon exertion. HEENT: Normocephalic, Atraumatic, No laceration or hematoma; Eyes: PEERL, Conjunctiva clear, Anicteric sclera Neck: Supple without any lymphadenopathy, nontender, no JVD, no carotid bruits, trachea midline, no thyromegaly Cardiac: Elevated JVD. S1, S2 auscultated, regular rhythm and rate, no mumurs or gallop Pulmonary: Chest clear to auscultation. Diminished bibasilar. GI: Abdomen normal to inspection. Soft, non tender, non- distended, no masses, no rebound tenderness or guarding. Bowel sounds active on all four quadrants Genitourinary: Deferred Extremities: WEAK. No cyanosis, clubbing, or edema. Pulses [2+] bilaterally. Full ROM on all four extremities. No focal weakness appreciated. Neurologic: Alert to person, place, time, and situation. Affect appropriate, intact sensation. Skin: Clean,dry, and intact. No ecchymosis, no rashes, or lesions Results Result Diagram: 06/23/17 0759 06/23/17 0759 Results 24 hrs Laboratory Tests Test 06/22/17 11:49 06/22/17 17:15 06/22/17 20:24 06/23/17 02:15 Bedside Glucose 165 135 209 143 Test 06/23/17 07:59 06/23/17 08:45 White Blood Count 12.6 #H Red Blood Count 3.32 L Hemoglobin 9.8 L Hematocrit 29.1 L Mean Corpuscular Volume 87.7 Mean Corpuscular Hemoglobin 29.5 Mean Corpuscular Hemoglobin Concent 33.7 Red Cell Distribution Width 14.5 Platelet Count 220 Mean Platelet Volume 9.5 Neutrophils % 87.6 H Lymphocytes % 4.8 L Monocytes % 7.1 Eosinophils % 0.0 Basophils % 0.0 Nucleated Red Blood Cells % 0.0 Neutrophils # 11.0 H Lymphocytes # 0.6 L Monocytes # 0.9 Eosinophils # 0.0 Basophils # 0.0 Nucleated Red Blood Cells # 0.0 Sodium Level 136 Potassium Level 3.4 L Chloride Level 88 L Carbon Dioxide Level 41 *H Anion Gap 11 Blood Urea Nitrogen 35 H Creatinine 1.27 H Glucose Level 118 Calcium Level 8.9 Magnesium Level 2.2 Prostate Specific Antigen 1.5 Bedside Glucose 110 Medications Medications Current Medications Lorazepam (Ativan) 0.5 mg Q8H PRN PO ANXIETY; Start 06/21/17 at 09:00 Ondansetron HCl (Zofran Inj) 4 mg Q6H PRN IV NAUSEA AND/OR VOMITING; Start 06/21/17 at 09:00 Furosemide (Lasix) 40 mg DAILY IV Last administered on 06/23/17 08:50; Admin Dose 40 MG; Start 06/21/17 at 09:00 Nitroglycerin (Nitroglycerin (Sl Tab) 0.4 Mg) 1 tab Q5M PRN SL CHEST PAIN; Start 06/21/17 at 09:00 Morphine Sulfate (morphine) 2 mg Q4H PRN IV PAIN LEVEL 7-10; Start 06/21/17 at 09:00 Aspirin (Aspirin) 81 mg DAILY PO Last administered on 06/23/17 08:49; Admin Dose 81 MG; Start 06/21/17 at 09:00 Acetaminophen/ Hydrocodone Bitart ([place] (5/325)) 1 tab Q4H PRN PO PAIN; Start 06/21/17 at 09:00 Magnesium Oxide 400 mg 400 mg BID PO Last administered on 06/23/17 08:49; Admin Dose 400 MG; Start 06/21/17 at 09:00 Levofloxacin/ Dextrose (Levaquin 500mg/ D5W 100 ml (Pmx)) 100 ml @ 100 mls/hr DAILY IVPB Last administered on 06/23/17 08:51; Admin Dose 100 MLS/HR; Start 06/21/17 at 09:00 Methylprednisolone Sodium Succinate (Solu-Medrol) 40 mg DAILY IV Last administered on 06/23/17 08:49; Admin Dose 40 MG; Start 06/21/17 at 09:00 Midodrine (Proamatine) 2.5 mg BID@,17 PO Last administered on 06/22/17 17: 19; Admin Dose 2.5 MG; Start 06/21/17 at 09:30 Diagnostic Test (Pha) (Accu-Chek) 1 ea 02 XX ; Start 06/22/17 at 02:00 Miscellaneous Information 1 ea NOTE XX ; Start 06/21/17 at 15:00 Glucose (Glutose) 15 gm Q15M PRN PO DECREASED GLUCOSE; Start 06/21/17 at 15:00 Glucose (Glutose) 22.5 gm Q15M PRN PO DECREASED GLUCOSE; Start 06/21/17 at 15: 00 Dextrose (D50w Syringe) 25 ml Q15M PRN IV DECREASED GLUCOSE; Start 06/21/17 at 15:00 Dextrose (D50w Syringe) 50 ml Q15M PRN IV DECREASED GLUCOSE; Start 06/21/17 at 15:00 Glucagon (Glucagen) 1 mg Q15M PRN IM DECREASED GLUCOSE; Start 06/21/17 at 15:00 Glucose (Glutose) 15 gm Q15M PRN BUCCAL DECREASED GLUCOSE; Start 06/21/17 at 15 :00 Megestrol Acetate (Megace Susp) 400 mg BID PO Last administered on 06/22/17 09:11; Admin Dose 400 MG; Start 06/21/17 at 21:00 Atorvastatin Calcium (Lipitor) 20 mg QHS PO Last administered on 06/22/17 20: 27; Admin Dose 20 MG; Start 06/22/17 at 21:00 Clopidogrel Bisulfate (plaVIX) 75 mg DAILY PO Last administered on 06/23/17 08:49; Admin Dose 75 MG; Start 06/23/17 at 09:00 Terazosin HCl (Hytrin) 2 mg HS PO ; Start 06/23/17 at 21:00 Tiotropium [place] (Spiriva) 1 inh DAILY INH Last administered on 06/23/17 08 :51; Admin Dose 1 INH; Start 06/23/17 at 09:00 Famotidine (Pepcid) 20 mg HS PO Last administered on 06/22/17 20:27; Admin Dose 20 MG; Start 06/22/17 at 21:00 MALAIKA PABLO NP Jun 23, 2017 09:58
--- NOTE | 2017-06-23 11:58 | RADRPT ---
PROCEDURE: US kidney CLINICAL INDICATION: Urinary tract infection. Acute kidney insufficiency. TECHNIQUE: Multiple real-time images were acquired COMPARISON: None available FINDINGS: The right kidney measures 9.1 cm in length. The left kidney measures 9.6 cm in length. 4.2 x 3.3 x 4.8 cm right kidney upper pole hypoechoic finding has slightly irregular margins. Probab le 1.4 x 1.2 cm left kidney upper pole hypoechoic finding, not imaged in the transverse plane. Quest ionable subcentimeter left kidney upper pole isoechoic focal bulging, not seen in the transverse vern ne. Of note, kidney stones may not be visualized by sonography. No abnormal perirenal fluid collections seen. No hydronephrosis seen. Curtis catheter is within a predominantly decompressed bladder. IMPRESSION: 1. Small - moderate sized right kidney upper pole hypoechoic finding does not have circumscribed ma rgins; thus it is not consistent with a simple cyst based upon this study. It could be a complex cys t. 2. Probable too small to characterize left kidney upper pole hypoechoic finding and questionable ca bcentimeter left kidney isoechoic focal bulging; these findings were not imaged in the transverse pl ane and are thus incompletely characterized. If older corresponding studies are unavailable, a kidney CT or MR scan is recommended for further an alysis. RPTAT: TT Physician Naila Date Time Electronically viewed and signed by Physician Naila on 06/23/2017 11:58 AURELIA/
[2017-06-23] MEDS ORDERED: POTASSIUM CHLORIDE (SR) 20 MEQ TAB PO STA (17:03)
--- NOTE | 2017-06-23 17:29 | RADRPT ---
Echocardiogram Report Patient Name: HUGH SINGH Gender: Male Date: 1930 Study Date: 22-Jun-2017 Able Bodied Seaman: LUIS Location: E Ref. Physician: SERA CORREA Quality: Adequate Procedures: Transthoracic echocardiogram with 2D, M-Mode, and Doppler examination. Indications: Congestive Heart Failure. 2D/M Mode Doppler Measurement Value Normal Ranges Measurement Value Normal Ranges AoR Diam MM 4.5 cm AV Peak Dirk 1.5 m/sec ACS MM 2.1 cm AV Peak PG 8.7 mmHg LVIDd 2D 5.1 3.5 - 5.6 cm LVOT Peak Dirk 0.8 m/sec LVIDs 2D 3.7 2.1 - 4.1 cm LVOT Peak PG 2.8 mmHg LVPWd 2D 1.1 0.6 - 1.1 cm MV E Peak Dirk 0.6 m/sec IVSd 2D 1.1 0.6 - 1.1 cm MV A Peak Dirk 1.0 m/sec EDV 2D 121.1 cm3 MV E/A 0.6 ESV 2D 50.6 cm3 MV Decel Time 400 msec LA Dimen 2D 3.9 2.3 - 4.0 cm MV Decel [place] 1 MV E/A 0.6 PV Peak Dirk 1.2 m/sec PV Peak PG 6.0 mmHg Findings Left Ventricle: Normal left ventricular cavity size. Sigmoid septum. Mild left ventricular systolic dysfunction. Ejection fraction is visually estimated at 4550 %. Tissue Doppler/Mitral Doppler indices are consistent with impaired relaxation (Stage I diastolic dysfunction). E/E`=8. Right Ventricle: Normal right ventricular size. Normal right ventricular systolic function. Left Atrium: The left atrium is normal in size. Right Atrium: The right atrium is normal in size. Atrial Septum: Not well visualized. Mitral Valve: Normal appearance of the mitral valve. Appears to be mild chordal calcification. Trace mitral regurgitation. Aortic Valve: No hemodynamically significant aortic stenosis by doppler. Aortic cusps appear mildly calcified. Trileaflet aortic valve. Mild aortic valve regurgitation. Tricuspid Valve: Normal appearance of the tricuspid valve. There is trace tricuspid regurgitation. Pulmonic Valve: Normal pulmonic valve appearance. There is mild pulmonic regurgitation. Pericardium: Normal pericardium with no significant pericardial effusion. Aorta: Normal aortic root. IVC: The IVC is not well visualized. Pulmonary Artery: Normal pulmonary artery size. Conclusions 1.The left ventricle is normal in size with mildly reduced systolic function. The inferior wall is hypokinetic. 2.Estimated left ventricular ejection fraction of 45-50%. 3.Grade 1 diastolic dysfunction. Electronically Signed By: Tim Luna 23-Jun-2017 17:28:02 -0800 Patient Name: HUGH SINGH Study Date: 22-Jun-[id number]
[2017-06-23] MEDS ORDERED: ACETAZOLAMIDE 250 MG TAB PO ONE (17:30)
--- NOTE | 2017-06-23 18:18 | CONS ---
Date/Time of Note Date/Time of Note DATE: 06/23/17 TIME: 18:16 Assessment/Plan Assessment/Plan Chief Complaint/Hosp Course Assessment: 1. Acute on chronic systolic/diastolic heart failure 2. COPD exacerbation with possible acute bronchitis 3. Ischemic cardiomyopathy, LVEF 45-50%, s/p remote PCI 01/25 (incomplete data) 4. CKD 5. Suspect h/o symptomatic orthostatic hypotension, on Midodrine 6. DM 7. Reported history of atrial fibrillation, currently in sinus on Amiodarone 8. Dyslipidemia Plan: Change Lasix from IV to PO 40mg daily Continue Amiodarone 200 mg daily For now, continue ASA 81 mg daily and Brilinta. Indications for dual antiplatelet therapy this far removed from last PCI (2014) is unclear. Defer to outpatient providers Continue Lipitor 10 mg qhs Continue Midodrine 2.5 mg bid Continue O2, steroids, BD, Abx per primary team Glycemic control per primary team Problems: Consultation Date/Type/Reason Admit Date/Time Jun 21, 2017 at 04:21 Initial Consult Date 06/22/17 Type of Consultation: Cardiology 24 HR Interval Summary Free Text/Dictation Breathing has improved. Detailed Summary Additional Comments 14 point review of systems without changes. Exam/Review of Systems Vital Signs Vitals Vital Signs Date Time Temp Pulse Resp B/P Pulse Ox O2 Delivery O2 Flow Rate FiO2 06/23/17 17:07 92 20 96 Nasal Cannula 2.0 06/23/17 16:00 98.4 112/51 06/21/17 17:40 32 Intake and Output 06/22/17 06/22/17 06/23/17 15:00 23:00 07:00 Intake Total 400 ml 800 ml 120 ml Output Total 300 ml 950 ml 480 ml Balance 100 ml -150 ml -360 ml Exam Constitutional: alert, oriented Psych: nl mood/affect, no complaints Head: atraumatic, normocephalic Neck: jvd (12 cm H20), non-tender, supple, No bruits Respiratory: crackles/rales (coarse upper rhonchi), normal air movement, No wheezing Cardiovascular: nl pulses, regular rate and rhythm, systolic murmur (2/6 HSM at apex and LLSB), No edema, No gallop, No rub Gastrointestinal: bowel sounds, nl liver, spleen, non-tender, soft Extremities: No calf tenderness, No clubbing, No cyanosis, No edema Skin: nl turgor, No rash or lesions Results Result Diagram: 06/23/17 0759 06/23/17 0759 Results 24 hrs Laboratory Tests Test 06/22/17 20:24 06/23/17 02:15 06/23/17 07:59 06/23/17 08:45 Bedside Glucose 209 143 110 White Blood Count 12.6 #H Red Blood Count 3.32 L Hemoglobin 9.8 L Hematocrit 29.1 L Mean Corpuscular Volume 87.7 Mean Corpuscular Hemoglobin 29.5 Mean Corpuscular Hemoglobin Concent 33.7 Red Cell Distribution Width 14.5 Platelet Count 220 Mean Platelet Volume 9.5 Neutrophils % 87.6 H Lymphocytes % 4.8 L Monocytes % 7.1 Eosinophils % 0.0 Basophils % 0.0 Nucleated Red Blood Cells % 0.0 Neutrophils # 11.0 H Lymphocytes # 0.6 L Monocytes # 0.9 Eosinophils # 0.0 Basophils # 0.0 Nucleated Red Blood Cells # 0.0 Sodium Level 136 Potassium Level 3.4 L Chloride Level 88 L Carbon Dioxide Level 41 *H Anion Gap 11 Blood Urea Nitrogen 35 H Creatinine 1.27 H Glucose Level 118 Calcium Level 8.9 Magnesium Level 2.2 Prostate Specific Antigen 1.5 Test 06/23/17 12:20 06/23/17 17:08 Bedside Glucose 136 135 Medications Medications Current Medications Lorazepam (Ativan) 0.5 mg Q8H PRN PO ANXIETY; Start 06/21/17 at 09:00 Ondansetron HCl (Zofran Inj) 4 mg Q6H PRN IV NAUSEA AND/OR VOMITING; Start 06/21/17 at 09:00 Furosemide (Lasix) 40 mg DAILY IV Last administered on 06/23/17 08:50; Admin Dose 40 MG; Start 06/21/17 at 09:00; Status Future Hold Nitroglycerin (Nitroglycerin (Sl Tab) 0.4 Mg) 1 tab Q5M PRN SL CHEST PAIN; Start 06/21/17 at 09:00 Morphine Sulfate (morphine) 2 mg Q4H PRN IV PAIN LEVEL 7-10; Start 06/21/17 at 09:00 Aspirin (Aspirin) 81 mg DAILY PO Last administered on 06/23/17 08:49; Admin Dose 81 MG; Start 06/21/17 at 09:00 Acetaminophen/ Hydrocodone Bitart ([place] (5/325)) 1 tab Q4H PRN PO PAIN; Start 06/21/17 at 09:00 Magnesium Oxide 400 mg 400 mg BID PO Last administered on 06/23/17 08:49; Admin Dose 400 MG; Start 06/21/17 at 09:00; Status Future Hold Levofloxacin/ Dextrose (Levaquin 500mg/ D5W 100 ml (Pmx)) 100 ml @ 100 mls/hr DAILY IVPB Last administered on 06/23/17 08:51; Admin Dose 100 MLS/HR; Start 06/21/17 at 09:00 Midodrine (Proamatine) 2.5 mg BID@ PO Last administered on 06/23/17 17: 04; Admin Dose 2.5 MG; Start 06/21/17 at 09:30 Diagnostic Test (Pha) (Accu-Chek) 1 ea 02 XX ; Start 06/22/17 at 02:00 Miscellaneous Information 1 ea NOTE XX ; Start 06/21/17 at 15:00 Glucose (Glutose) 15 gm Q15M PRN PO DECREASED GLUCOSE; Start 06/21/17 at 15:00 Glucose (Glutose) 22.5 gm Q15M PRN PO DECREASED GLUCOSE; Start 06/21/17 at 15: 00 Dextrose (D50w Syringe) 25 ml Q15M PRN IV DECREASED GLUCOSE; Start 06/21/17 at 15:00 Dextrose (D50w Syringe) 50 ml Q15M PRN IV DECREASED GLUCOSE; Start 06/21/17 at 15:00 Glucagon (Glucagen) 1 mg Q15M PRN IM DECREASED GLUCOSE; Start 06/21/17 at 15:00 Glucose (Glutose) 15 gm Q15M PRN BUCCAL DECREASED GLUCOSE; Start 06/21/17 at 15 :00 Megestrol Acetate (Megace Susp) 400 mg BID PO Last administered on 06/22/17 09:11; Admin Dose 400 MG; Start 06/21/17 at 21:00 Atorvastatin Calcium (Lipitor) 20 mg QHS PO Last administered on 06/22/17 20: 27; Admin Dose 20 MG; Start 06/22/17 at 21:00 Clopidogrel Bisulfate (plaVIX) 75 mg DAILY PO Last administered on 06/23/17 08:49; Admin Dose 75 MG; Start 06/23/17 at 09:00 Terazosin HCl (Hytrin) 2 mg HS PO ; Start 06/23/17 at 21:00 Tiotropium [place] (Spiriva) 1 inh DAILY INH Last administered on 06/23/17 08 :51; Admin Dose 1 INH; Start 06/23/17 at 09:00 Famotidine (Pepcid) 20 mg HS PO Last administered on 06/22/17 20:27; Admin Dose 20 MG; Start 06/22/17 at 21:00 Prednisone (Prednisone) 20 mg DAILY PO ; Start 06/24/17 at 09:00 CELIA HATCH MD Jun 23, 2017 18:18
[2017-06-23] MEDS: TERAZOSIN 2 MG CAP PO SCH (22:18)
[2017-06-23] MEDS: FAMOTIDINE 20 MG TAB PO SCH (22:18)
[2017-06-23] MEDS: ATORVASTATIN 20 MG TAB PO SCH (22:18)
--- NOTE | 2017-06-23 22:55 | CONS ---
DATE OF ADMISSION: 06/21/2017 DATE OF CONSULTATION: NEPHROLOGY CONSULTATION REASON FOR CONSULTATION: Metabolic alkalosis. PHYSICIAN REQUESTING CONSULTATION: Dr. Correa HISTORY OF PRESENT ILLNESS: This is an 87-year-old male with a past medical history of ischemic car diomyopathy with ejection fraction of 45%, history of coronary artery disease, hypertension, dyslipi demia, diabetes, COPD, AFib, who presents to [facility] Emergency Room with progressive pool rtness of breath and lower extremity swelling. The patient, upon arrival in the emergency room, had a chest x-ray that showed bibasilar atelectasis, increased cardiac silhouette. The patient, in the emergency room, was diagnosed with decompensated heart failure, was given diuretic therapy and admi tted to telemetry for further evaluation. While on telemetry, the patient seen by cardiology. The patient also noted to have COPD exacerbation, was started on antibiotics and nebulizers. In terms of patient's renal history, per patient, denied any previous history of chronic kidney dise ase. During the hospital course, the patient's creatinine has been fluctuating around 1.2 mg/dL. PAST MEDICAL HISTORY: As stated above, history of ischemic cardiomyopathy, hypertension, dyslipidem ia, diabetes, COPD, AFib. PAST SURGICAL HISTORY: Status post PCI. ALLERGIES: NO KNOWN DRUG ALLERGIES. FAMILY HISTORY: Noncontributory. SOCIAL HISTORY: Does not drink, smoke or do drugs. MEDICATIONS: The patient's medications have been reviewed. REVIEW OF SYSTEMS: A 14-point review of systems was conducted. Pertinent positives stated in HPI, otherwise negative. PHYSICAL EXAMINATION: VITAL SIGNS: Blood pressure is 112/51, respirations 19, pulse 81, temperature 98.4. HEENT: Head is normocephalic. NECK: Supple. HEART: Regular rate. LUNGS: Show diminished breath sounds at the base. ABDOMEN: Soft, nontender to palpation. No rebound or guarding. EXTREMITIES: Negative for clubbing, cyanosis. Trace edema. DERMATOLOGIC: No rashes. MUSCULOSKELETAL: No joint effusions. NEUROLOGIC: No focal deficits. LABORATORY DATA: Shows sodium 136, potassium 3.4, chloride 88, bicarbonate 41, BUN 35, creatinine 1 .27. White count 12.6, hemoglobin 9.8, hematocrit of 29.1, platelet count of 220. ABG showed a pH 7.47 with a pCO2 of 44. ASSESSMENT AND PLAN: This is an 87-year-old man who presents with: 1. Nonoliguric acute kidney injury with unknown baseline creatinine. Etiology of acute kidney inju ry is secondary to hemodynamics. Plan, at this point, is to check a UA with microanalysis. We will check urine electrolytes. We will monitor closely on diuretic therapy. Otherwise, continue suppor tive care, renally dose all meds, avoid nephrotoxins. If renal function should further decline, wou ld consider holding diuretic therapy. 2. Metabolic alkalosis. Etiology secondary to chloride deficiency, likely from diuretic use. Plan is to hold Lasix. We will give the patient Diamox. Monitor renal function and electrolytes closel y. 3. Hypokalemia. We will replete with potassium chloride. 4. Anemia. Monitor hemoglobin and hematocrit levels. 5. Mineral bone disorder. Monitor calcium and phosphorus levels. 6. Acute hypoxemic respiratory failure secondary to congestive heart failure and chronic obstructiv e pulmonary disease. Continue current medical management. 7. [id number] systolic and diastolic heart failure. Continue current medical management. Co ntinue diuretic therapy. We will hold Lasix in the setting of alkalosis. We will give 1 dose of Di amox. 8. Ischemic cardiomyopathy. Ejection fraction of 45%. Continue current medical management. Follo w up with cardiology. 9. History of coronary artery disease. Continue current treatment plan. Thank you, Dr. Correa, for this interesting consult. It will be a pleasure to follow patient with you throughout the hospital course. Dictated By: JULIAN ADKINS DO NR/NTS Conf#: [id number] DID#: [id number] CC: SERA CORREA MD;*EndCC*
[2017-06-24] VITALS (13 sets, daily range): BP systolic 107–128; BP diastolic 54–72; PULSE 69–79; RESP 18–20
[2017-06-24] MEDS: ALBUTEROL/IPRATROPIUM (NEB) 3 ML AMP HHN SCH ×6 (01:59→20:28)
[2017-06-24] MEDS: INSULIN ASPART [NOVOLOG] 3 ML PEN SC SCH ×4 (08:00→21:00)
[2017-06-24] MEDS: MEGESTROL (40 MG/ML) 10ML CUP PO SCH ×2 (08:17→21:00)
[2017-06-24] MEDS: LEVOFLOXACIN 500MG/D5W (PMX) 100 ML IVPB SCH (08:18)
[2017-06-24] MEDS: TIOTROPIUM 18 MCG CAPSULE INHA DEV INH SCH (08:18)
[2017-06-24] MEDS: ASPIRIN 81 MG TAB PO SCH (08:19)
[2017-06-24] MEDS: CLOPIDOGREL 75 MG TAB PO SCH (08:20)
[2017-06-24] MEDS: predniSONE 20 MG TAB PO SCH (08:20)
[2017-06-24] MEDS: MIDODRINE 2.5 MG TAB PO SCH ×2 (08:20→17:27)
[2017-06-24] MEDS ORDERED: FUROSEMIDE 40 MG TAB PO SCH (09:00)
[2017-06-24 09:07] LABS: BASOPHILS % 0.1 % (0.0-2.0); HEMATOCRIT 31.1 % (42.0-52.0); HEMOGLOBIN 10.1 g/dl (14.0-18.0); LYMPHOCYTES # 0.8 10^3/ul (0.8-2.9); LYMPHOCYTES % 6.1 % (15.0-51.0); MEAN CORPUSCULAR HEMOGLOBIN 28.7 pg (29.0-33.0); MEAN CORPUSCULAR HGB CONC 32.5 g/dl (32.0-37.0); MEAN CORPUSCULAR VOLUME 88.4 fl (82.0-101.0); MEAN PLATELET VOLUME 9.6 fl (7.4-10.4); MONOCYTES % 7.6 % (0.0-11.0); NEUTROPHIL # 11.3 10^3/ul (1.6-7.5); NEUTROPHILS % 85.5 % (39.0-77.0); PLATELET COUNT 238 10^3/UL (140-415); RED BLOOD COUNT 3.52 10^6/ul (4.70-6.10); RED CELL DISTRIBUTION WIDTH 14.5 % (11.5-14.5); WHITE BLOOD COUNT 13.2 10^3/ul (4.8-10.8)
[2017-06-24 09:38] LABS: CALCIUM 8.9 mg/dl (8.4-10.2); CREATININE 1.32 mg/dl (0.61-1.24); POTASSIUM 3.5 mmol/L (3.5-5.1)
--- NOTE | 2017-06-24 11:17 | PN ---
DATE: 06/24/2017 SUBJECTIVE: The patient is stable. No events overnight. OBJECTIVE: VITAL SIGNS: 118/54, pulse 76, respiration 19, temperature 98.6. HEENT: Head is normocephalic. NECK: Supple. HEART: Regular rate. LUNGS: Show diminished breath sounds at base. ABDOMEN: Soft, nontender to palpation. No rebound or guarding. EXTREMITIES: Negative for clubbing, cyanosis. No edema. DERMATOLOGIC: No rashes. MUSCULOSKELETAL: No joint effusions. NEUROLOGIC: No change in exam. MEDICATIONS: The patient's medications are reviewed. LABORATORY DATA: Laboratory data from is currently pending. ASSESSMENT AND PLAN: 1. Nonoliguric acute kidney injury with unknown base creatinine. Etiology is likely secondary to h emodynamics. The patient is undergoing full evaluation. Awaiting patient's urinalysis, urine elect rolytes are pending. Renal panel from this morning is pending. We will continue to monitor and fol low closely on diuretic therapy. 2. Metabolic alkalosis. Etiology is likely secondary to diuretic use, chloride deficiency. Will c ontinue Diamox, hold Lasix at this time. 3. Hypokalemia. Continue to monitor and replete. 4. Anemia. Continue to monitor hematocrit. 5. Mineral bone disorder. Monitor calcium and phosphorus levels. 6. Acute respiratory failure secondary to congestive heart failure, COPD, continue medical manageme nt. 7. Acute on chronic systolic heart failure. Continue diuretic regimen. We will continue Diamox. 8. Ischemic cardiomyopathy. Continue current medical management. Follow up with Cardiology. 9. History of coronary artery disease. Continue current treatment plan. Dictated By: JULIAN ADKINS DO NR/NTS Conf#: [id number] DID#: [id number] CC: SERA CORREA MD;*EndCC*
[2017-06-24 11:20] LABS: ADD UMIC YES; UR ASCORBIC ACID NEGATIVE (NEGATIVE); UR BACTERIA FEW /HPF (NONE SEEN); UR BILIRUBIN (Dip) NEGATIVE (NEGATIVE); UR BLOOD (Dip) NEGATIVE (NEGATIVE); UR CLARITY CLEAR (CLEAR); UR COLOR YELLOW (YELLOW); UR GLUCOSE (Dip) NEGATIVE (NEGATIVE); UR KETONES (Dip) NEGATIVE (NEGATIVE); UR LEUKOCYTE ESTERASE (Dip) TRACE Leu/ul (NEGATIVE); UR NITRITE (Dip) NEGATIVE (NEGATIVE); UR RBC 0 /HPF (0-5); UR SPECIFIC GRAVITY (Dip) 1.016 (1.003-1.030); UR TOTAL PROTEIN (Dip) NEGATIVE (NEGATIVE); UR UROBILINOGEN (Dip) NEGATIVE (NEGATIVE)
--- NOTE | 2017-06-24 12:31 | PN ---
Date/Time of Note Date/Time of Note DATE: 06/24/17 TIME: 12:27 Assessment/Plan VTE Prophylaxis VTE Prophylaxis Intervention: SCD's Lines/Catheters IV [facility]from [facility]ine [facility] Urinary Cath still in place: Yes Reason Cath still needed: other (indicate) Assessment/Plan Chief Complaint/Hosp Course 87-year-old male with multiple comorbidities, presented to the emergency room for evaluation of BLE swelling and shortness of breath upon exertion with productive cough. 1. Acute on chronic systolic/diastolic heart failure. Symptoms resolved.ECHO WITH ef 45-50% Status: Acute on chronic. -Monitor I&O closely. -Judicious Lasix as patient with possible contraction alkalosis. Currently appears euvolemic . 2. COPD exacerbation with possible acute bronchitis versus pneumonia. Clinically improved. Status: Acute on chronic. -Continue empiric Levaquin. Follow-up sputum culture. -Continue low-dose steroids-tapering down, qceakv-[id number]-[id number] bronchodilators and oxygen as needed. 3. Metabolic alkalosis, likely contraction alkalosis vs 2/2 magnesium oxide. Improved. Status: Acute. -Recommend holding Lasix and magnesium oxide. -F/u nephrology recs. Patient received Diamox. 4. OSMAN on likely CKD. OSMAN likely 2/2 hemodynamics/Diuretics-indued.US with renal cyst Status:Acute -.Monitor renal fxn closely.F/u nephro recs on US findings. 5. Ischemic cardiomyopathy with last LVEF 45%, s/p PCI 01/25 -Continue outpatient management. On aspirin and Plavix as outpatient which we will resume. 6. Anemia of chronic illness. Status: Chronic. -H&H stable. Will monitor. 7. Reported history of prostate disorders. Status: Chronic. -On Hytrin-PSA normal. 8. Prediabetes with A1c 6.0. Status: Chronic. -Carbohydrate controlled diet. Accu-Cheks/ISS in-house. 9. Dyslipidemia Status: Chronic. -On statin. 10. Debility -PT eval/tx DVT prophylaxis: SCDs PUD prophylaxis: Pepcid. Patient was seen in collaboration with Problems: Subjective 24 Hr Interval Summary Free Text/Dictation Doing well. Exam/Review of Systems Vital Signs Vitals Vital Signs Date Time Temp Pulse Resp B/P Pulse Ox O2 Delivery O2 Flow Rate FiO2 06/24/17 12:14 72 06/24/17 12:06 98.4 19 126/72 94 06/24/17 08:55 2.0 06/24/17 08:55 Nasal Cannula 06/21/17 17:40 32 Intake and Output 06/23/17 06/23/17 06/24/17 15:00 23:00 07:00 Intake Total 100 ml 600 ml 360 ml Output Total 1900 ml 650 ml Balance 100 ml -1300 ml -290 ml Exam General: Chronically ill looking male with mild shortness of breath upon exertion. HEENT: Normocephalic, Atraumatic, No laceration or hematoma; Eyes: PEERL, Conjunctiva clear, Anicteric sclera Neck: Supple without any lymphadenopathy, nontender, no JVD, no carotid bruits, trachea midline, no thyromegaly Cardiac: Elevated JVD. S1, S2 auscultated, regular rhythm and rate, no mumurs or gallop Pulmonary: Chest clear to auscultation. Diminished bibasilar. GI: Abdomen normal to inspection. Soft, non tender, non- distended, no masses, no rebound tenderness or guarding. Bowel sounds active on all four quadrants Genitourinary: Deferred Extremities: WEAK. No cyanosis, clubbing, or edema. Pulses [2+] bilaterally. Full ROM on all four extremities. No focal weakness appreciated. Neurologic: Alert to person, place, time, and situation. Affect appropriate, intact sensation. Skin: Clean,dry, and intact. No ecchymosis, no rashes, or lesions Results Result Diagram: 06/24/17 0734 06/24/17 0734 Results 24 hrs Laboratory Tests Test 06/23/17 17:08 06/23/17 22:24 06/23/17 23:02 06/24/17 07:34 Bedside Glucose 135 135 Urine Color YELLOW Urine Clarity CLEAR Urine pH 5.0 Urine Specific [place] 1.016 Urine Ketones NEGATIVE Urine Nitrite NEGATIVE Urine Bilirubin NEGATIVE Urine Urobilinogen NEGATIVE Urine Leukocyte Esterase TRACE A Urine Microscopic RBC 0 Urine Microscopic WBC 9 H Urine Bacteria FEW A Urine Hemoglobin NEGATIVE Urine Random Creatinine 74.19 Urine Random Sodium 19 L Urine Glucose NEGATIVE Urine Total Protein 10.0 White Blood Count 13.2 H Red Blood Count 3.52 L Hemoglobin 10.1 L Hematocrit 31.1 L Mean Corpuscular Volume 88.4 Mean Corpuscular Hemoglobin 28.7 L Mean Corpuscular Hemoglobin Concent 32.5 Red Cell Distribution Width 14.5 Platelet Count 238 Mean Platelet Volume 9.6 Neutrophils % 85.5 H Lymphocytes % 6.1 L Monocytes % 7.6 Eosinophils % 0.0 Basophils % 0.1 Nucleated Red Blood Cells % 0.0 Neutrophils # 11.3 H Lymphocytes # 0.8 Monocytes # 1.0 H Eosinophils # 0.0 Basophils # 0.0 Nucleated Red Blood Cells # 0.0 Sodium Level 135 Potassium Level 3.5 Chloride Level 90 L Carbon Dioxide Level 38 H Anion Gap 11 Blood Urea Nitrogen 36 H Creatinine 1.32 H Glucose Level 107 Calcium Level 8.9 Test 06/24/17 08:16 06/24/17 12:03 Bedside Glucose 111 111 Medications Medications Current Medications Lorazepam (Ativan) 0.5 mg Q8H PRN PO ANXIETY; Start 06/21/17 at 09:00 Ondansetron HCl (Zofran Inj) 4 mg Q6H PRN IV NAUSEA AND/OR VOMITING; Start 06/21/17 at 09:00 Furosemide (Lasix) 40 mg DAILY IV Last administered on 06/23/17 08:50; Admin Dose 40 MG; Start 06/21/17 at 09:00; Status Future Hold Nitroglycerin (Nitroglycerin (Sl Tab) 0.4 Mg) 1 tab Q5M PRN SL CHEST PAIN; Start 06/21/17 at 09:00 Morphine Sulfate (morphine) 2 mg Q4H PRN IV PAIN LEVEL 7-10; Start 06/21/17 at 09:00 Aspirin (Aspirin) 81 mg DAILY PO Last administered on 06/24/17 08:19; Admin Dose 81 MG; Start 06/21/17 at 09:00 Acetaminophen/ Hydrocodone Bitart ([place] (5/325)) 1 tab Q4H PRN PO PAIN Last administered on 06/23/17 22:49; Admin Dose 1 TAB; Start 06/21/17 at 09:00 Magnesium Oxide 400 mg 400 mg BID PO Last administered on 06/23/17 08:49; Admin Dose 400 MG; Start 06/21/17 at 09:00; Status Future Hold Levofloxacin/ Dextrose (Levaquin 500mg/ D5W 100 ml (Pmx)) 100 ml @ 100 mls/hr DAILY IVPB Last administered on 06/24/17 08:18; Admin Dose 100 MLS/HR; Start 06/21/17 at 09:00 Midodrine (Proamatine) 2.5 mg BID@ PO Last administered on 06/24/17 08: 20; Admin Dose 2.5 MG; Start 06/21/17 at 09:30 Diagnostic Test (Pha) (Accu-Chek) 1 ea 02 XX ; Start 06/22/17 at 02:00 Miscellaneous Information 1 ea NOTE XX ; Start 06/21/17 at 15:00 Glucose (Glutose) 15 gm Q15M PRN PO DECREASED GLUCOSE; Start 06/21/17 at 15:00 Glucose (Glutose) 22.5 gm Q15M PRN PO DECREASED GLUCOSE; Start 06/21/17 at 15: 00 Dextrose (D50w Syringe) 25 ml Q15M PRN IV DECREASED GLUCOSE; Start 06/21/17 at 15:00 Dextrose (D50w Syringe) 50 ml Q15M PRN IV DECREASED GLUCOSE; Start 06/21/17 at 15:00 Glucagon (Glucagen) 1 mg Q15M PRN IM DECREASED GLUCOSE; Start 06/21/17 at 15:00 Glucose (Glutose) 15 gm Q15M PRN BUCCAL DECREASED GLUCOSE; Start 06/21/17 at 15 :00 Megestrol Acetate (Megace Susp) 400 mg BID PO Last administered on 06/24/17 08:17; Admin Dose 400 MG; Start 06/21/17 at 21:00 Atorvastatin Calcium (Lipitor) 20 mg QHS PO Last administered on 06/23/17 22: 18; Admin Dose 20 MG; Start 06/22/17 at 21:00 Clopidogrel Bisulfate (plaVIX) 75 mg DAILY PO Last administered on 06/24/17 08:20; Admin Dose 75 MG; Start 06/23/17 at 09:00 Terazosin HCl (Hytrin) 2 mg HS PO Last administered on 06/23/17 22:18; Admin Dose 2 MG; Start 06/23/17 at 21:00 Tiotropium [place] (Spiriva) 1 inh DAILY INH Last administered on 06/24/17 08 :18; Admin Dose 1 INH; Start 06/23/17 at 09:00 Famotidine (Pepcid) 20 mg HS PO Last administered on 06/23/17 22:18; Admin Dose 20 MG; Start 06/22/17 at 21:00 Prednisone (Prednisone) 20 mg DAILY PO Last administered on 06/24/17 08:20; Admin Dose 20 MG; Start 06/24/17 at 09:00 Furosemide (Lasix) 40 mg DAILY PO Last administered on 06/24/17 08:21; Admin Dose 40 MG; Start 06/24/17 at 09:00 MALAIKA PABLO NP Jun 24, 2017 12:31
[2017-06-24] MEDS: SENNA TAB PO PRN (12:49)
--- NOTE | 2017-06-24 17:03 | CONS ---
Date/Time of Note Date/Time of Note DATE: 06/24/17 TIME: 17:02 Assessment/Plan Assessment/Plan Chief Complaint/Hosp Course Assessment: 1. Acute on chronic systolic/diastolic heart failure 2. COPD exacerbation with possible acute bronchitis 3. Ischemic cardiomyopathy, LVEF 45-50%, s/p remote PCI 01/25 (incomplete data) 4. CKD 5. Suspect h/o symptomatic orthostatic hypotension, on Midodrine 6. DM 7. Reported history of atrial fibrillation, currently in sinus on Amiodarone 8. Dyslipidemia Plan: Continue diuresis, appreciate nephrology recommendations, will hold Lasix and give Diamox due to metabolic alkalosis Continue Amiodarone 200 mg daily For now, continue ASA 81 mg daily and Brilinta. Indications for dual antiplatelet therapy this far removed from last PCI (2014) is unclear. Defer to outpatient providers Continue Lipitor 10 mg qhs Continue Midodrine 2.5 mg bid Continue O2, steroids, BD, Abx per primary team Glycemic control per primary team Problems: Consultation Date/Type/Reason Admit Date/Time Jun 21, 2017 at 04:21 Initial Consult Date 06/22/17 Type of Consultation: Cardiology 24 HR Interval Summary Free Text/Dictation No acute events. Shortness of breath improving. Detailed Summary Additional Comments 14 point review of systems without changes. Exam/Review of Systems Vital Signs Vitals Vital Signs Date Time Temp Pulse Resp B/P Pulse Ox O2 Delivery O2 Flow Rate FiO2 06/24/17 16:38 83 20 97 Nasal Cannula 1.0 06/24/17 15:58 98.3 107/55 06/21/17 17:40 32 Intake and Output 06/23/17 06/23/17 06/24/17 15:00 23:00 07:00 Intake Total 100 ml 600 ml 360 ml Output Total 1900 ml 650 ml Balance 100 ml -1300 ml -290 ml Exam Constitutional: alert, oriented Psych: nl mood/affect, no complaints Head: atraumatic, normocephalic Neck: jvd (12 cm H20), non-tender, supple, No bruits Respiratory: crackles/rales (coarse upper rhonchi), normal air movement, No wheezing Cardiovascular: nl pulses, regular rate and rhythm, systolic murmur (2/6 HSM at apex and LLSB), No edema, No gallop, No rub Gastrointestinal: bowel sounds, nl liver, spleen, non-tender, soft Extremities: No calf tenderness, No clubbing, No cyanosis, No edema Skin: nl turgor, No rash or lesions Results Result Diagram: 06/24/17 0734 06/24/17 0734 Results 24 hrs Laboratory Tests Test 06/23/17 17:08 06/23/17 22:24 06/23/17 23:02 06/24/17 07:34 Bedside Glucose 135 135 Urine Color YELLOW Urine Clarity CLEAR Urine pH 5.0 Urine Specific [place] 1.016 Urine Ketones NEGATIVE Urine Nitrite NEGATIVE Urine Bilirubin NEGATIVE Urine Urobilinogen NEGATIVE Urine Leukocyte Esterase TRACE A Urine Microscopic RBC 0 Urine Microscopic WBC 9 H Urine Bacteria FEW A Urine Hemoglobin NEGATIVE Urine Random Creatinine 74.19 Urine Random Sodium 19 L Urine Glucose NEGATIVE Urine Total Protein 10.0 White Blood Count 13.2 H Red Blood Count 3.52 L Hemoglobin 10.1 L Hematocrit 31.1 L Mean Corpuscular Volume 88.4 Mean Corpuscular Hemoglobin 28.7 L Mean Corpuscular Hemoglobin Concent 32.5 Red Cell Distribution Width 14.5 Platelet Count 238 Mean Platelet Volume 9.6 Neutrophils % 85.5 H Lymphocytes % 6.1 L Monocytes % 7.6 Eosinophils % 0.0 Basophils % 0.1 Nucleated Red Blood Cells % 0.0 Neutrophils # 11.3 H Lymphocytes # 0.8 Monocytes # 1.0 H Eosinophils # 0.0 Basophils # 0.0 Nucleated Red Blood Cells # 0.0 Sodium Level 135 Potassium Level 3.5 Chloride Level 90 L Carbon Dioxide Level 38 H Anion Gap 11 Blood Urea Nitrogen 36 H Creatinine 1.32 H Glucose Level 107 Calcium Level 8.9 Test 06/24/17 08:16 06/24/17 12:03 Bedside Glucose 111 111 Medications Medications Current Medications Lorazepam (Ativan) 0.5 mg Q8H PRN PO ANXIETY; Start 06/21/17 at 09:00 Ondansetron HCl (Zofran Inj) 4 mg Q6H PRN IV NAUSEA AND/OR VOMITING; Start 06/21/17 at 09:00 Furosemide (Lasix) 40 mg DAILY IV Last administered on 06/23/17t 08:50; Admin Dose 40 MG; Start 06/21/17 at 09:00; Status Future Hold Nitroglycerin (Nitroglycerin (Sl Tab) 0.4 Mg) 1 tab Q5M PRN SL CHEST PAIN; Start 06/21/17 at 09:00 Morphine Sulfate (morphine) 2 mg Q4H PRN IV PAIN LEVEL 7-10; Start 06/21/17 at 09:00 Aspirin (Aspirin) 81 mg DAILY PO Last administered on 06/24/17 08:19; Admin Dose 81 MG; Start 06/21/17 at 09:00 Acetaminophen/ Hydrocodone Bitart ([place] (5/325)) 1 tab Q4H PRN PO PAIN Last administered on 06/23/17 22:49; Admin Dose 1 TAB; Start 06/21/17 at 09:00 Magnesium Oxide 400 mg 400 mg BID PO Last administered on 06/23/17 08:49; Admin Dose 400 MG; Start 06/21/17 at 09:00; Status Future Hold Levofloxacin/ Dextrose (Levaquin 500mg/ D5W 100 ml (Pmx)) 100 ml @ 100 mls/hr DAILY IVPB Last administered on 06/24/17 08:18; Admin Dose 100 MLS/HR; Start 06/21/17 at 09:00 Midodrine (Proamatine) 2.5 mg BID@,17 PO Last administered on 06/24/17 08: 20; Admin Dose 2.5 MG; Start 06/21/17 at 09:30 Diagnostic Test (Pha) (Accu-Chek) 1 ea 02 XX ; Start 06/22/17 at 02:00 Miscellaneous Information 1 ea NOTE XX ; Start 06/21/17 at 15:00 Glucose (Glutose) 15 gm Q15M PRN PO DECREASED GLUCOSE; Start 06/21/17 at 15:00 Glucose (Glutose) 22.5 gm Q15M PRN PO DECREASED GLUCOSE; Start 06/21/17 at 15: 00 Dextrose (D50w Syringe) 25 ml Q15M PRN IV DECREASED GLUCOSE; Start 06/21/17 at 15:00 Dextrose (D50w Syringe) 50 ml Q15M PRN IV DECREASED GLUCOSE; Start 06/21/17 at 15:00 Glucagon (Glucagen) 1 mg Q15M PRN IM DECREASED GLUCOSE; Start 06/21/17 at 15:00 Glucose (Glutose) 15 gm Q15M PRN BUCCAL DECREASED GLUCOSE; Start 06/21/17 at 15 :00 Megestrol Acetate (Megace Susp) 400 mg BID PO Last administered on 06/24/17 08:17; Admin Dose 400 MG; Start 06/21/17 at 21:00 Atorvastatin Calcium (Lipitor) 20 mg QHS PO Last administered on 06/23/17 22: 18; Admin Dose 20 MG; Start 06/22/17 at 21:00 Clopidogrel Bisulfate (plaVIX) 75 mg DAILY PO Last administered on 06/24/17 08:20; Admin Dose 75 MG; Start 06/23/17 at 09:00 Terazosin HCl (Hytrin) 2 mg HS PO Last administered on 06/23/17 22:18; Admin Dose 2 MG; Start 06/23/17 at 21:00 Tiotropium [place] (Spiriva) 1 inh DAILY INH Last administered on 06/24/17 08 :18; Admin Dose 1 INH; Start 06/23/17 at 09:00 Famotidine (Pepcid) 20 mg HS PO Last administered on 06/23/17 22:18; Admin Dose 20 MG; Start 06/22/17 at 21:00 Prednisone (Prednisone) 20 mg DAILY PO Last administered on 06/24/17 08:20; Admin Dose 20 MG; Start 06/24/17 at 09:00 Furosemide (Lasix) 40 mg DAILY PO Last administered on 06/24/17 08:21; Admin Dose 40 MG; Start 06/24/17 at 09:00 Senna (Senokot) 2 tab BID PRN PO CONSTIPATION Last administered on 06/24/17 12:49; Admin Dose 2 TAB; Start 06/24/17 at 12:30 CELIA HATCH MD Jun 24, 2017 17:03
[2017-06-24] MEDS ORDERED: ACETAZOLAMIDE 250 MG TAB PO ONE (17:30)
[2017-06-24] MEDS: FAMOTIDINE 20 MG TAB PO SCH (21:55)
[2017-06-24] MEDS: ATORVASTATIN 20 MG TAB PO SCH (21:55)
[2017-06-24] MEDS: ACCU-CHEK XX SCH (21:56)
[2017-06-24] MEDS: TERAZOSIN 2 MG CAP PO SCH (23:24)
[2017-06-25] VITALS (13 sets, daily range): BP systolic 114–133; BP diastolic 53–70; PULSE 69–73; RESP 17–20
[2017-06-25] MEDS: ALBUTEROL/IPRATROPIUM (NEB) 3 ML AMP HHN SCH ×6 (00:19→19:58)
[2017-06-25] MEDS: INSULIN ASPART [NOVOLOG] 3 ML PEN SC SCH ×4 (08:00→21:00)
[2017-06-25] MEDS: TIOTROPIUM 18 MCG CAPSULE INHA DEV INH SCH (08:26)
[2017-06-25] MEDS: predniSONE 20 MG TAB PO SCH (08:29)
[2017-06-25] MEDS: CLOPIDOGREL 75 MG TAB PO SCH (08:29)
[2017-06-25] MEDS: LEVOFLOXACIN 500MG/D5W (PMX) 100 ML IVPB SCH (08:29)
[2017-06-25] MEDS: SENNA TAB PO PRN (08:29)
[2017-06-25] MEDS: ASPIRIN 81 MG TAB PO SCH (08:29)
[2017-06-25] MEDS: MEGESTROL (40 MG/ML) 10ML CUP PO SCH ×2 (08:30→21:14)
[2017-06-25] MEDS: MIDODRINE 2.5 MG TAB PO SCH ×2 (09:49→17:00)
[2017-06-25 09:50] LABS: CALCIUM 8.5 mg/dl (8.4-10.2); CREATININE 1.51 mg/dl (0.61-1.24); MAGNESIUM 2.3 mg/dl (1.7-2.5); POTASSIUM 3.5 mmol/L (3.5-5.1)
--- NOTE | 2017-06-25 11:30 | PN ---
Date/Time of Note Date/Time of Note DATE: 06/25/17 TIME: 11:27 Assessment/Plan VTE Prophylaxis VTE Prophylaxis Intervention: SCD's Lines/Catheters IV [facility] [place] [facility] Urinary Cath still in place: Yes Reason Cath still needed: other (indicate) Assessment/Plan Chief Complaint/Hosp Course 87-year-old male with multiple comorbidities, presented to the emergency room for evaluation of BLE swelling and shortness of breath upon exertion with productive cough. 1. Acute on chronic systolic/diastolic heart failure. Symptoms resolved.ECHO with EF 45-50% Status: Acute on chronic. -Monitor I&O closely. -Lasix on hold / #3. On Diamox. Currently appears euvolemic . 2. COPD exacerbation with possible acute bronchitis versus pneumonia. Clinically improved. Status: Acute on chronic. -Continue empiric Levaquin. Follow-up sputum culture. -Continue low-dose steroids-tapering down, [id number] bronchodilators and oxygen as needed. 3. Metabolic alkalosis, likely contraction alkalosis vs 2/2 magnesium oxide. Improved with Diamox. Status: Acute. -Recommend holding Lasix and magnesium oxide. -F/u nephrology recs. Patient received Diamox. 4. OSMAN on likely CKD. OSMAN likely 2/2 hemodynamics/Diuretics-indued.US with renal cyst Status:Acute -.Monitor renal fxn closely.F/u nephro recs on US findings. 5. Ischemic cardiomyopathy with last LVEF 45%, s/p PCI 01/25 -Continue outpatient management. 6. Anemia of chronic illness. Status: Chronic. -H&H stable. Will monitor. 7. Reported history of prostate disorders. Status: Chronic. -On Hytrin-PSA normal. 8. Prediabetes with A1c 6.0. Status: Chronic. -Carbohydrate controlled diet. Accu-Cheks/ISS in-house. 9. Dyslipidemia Status: Chronic. -On statin. 10.Progressive debility. Status:Chronic. -May benefit from ECF. Family to make decision. DVT prophylaxis: SCDs PUD prophylaxis: Pepcid. DC planning once cleared from Nephrology/cardiology standpoint.I have also recommended ECF placement and will have family determine. Spoke with PCP and recommended [facility] agency up [place]. Spoke with son and not receptive for SNF at this time. Will arrange HHPT and safety eval. Patient was seen in collaboration with Problems: Subjective 24 Hr Interval Summary Free Text/Dictation Doing well. no acute distress. Exam/Review of Systems Vital Signs Vitals Vital Signs Date Time Temp Pulse Resp B/P Pulse Ox O2 Delivery O2 Flow Rate FiO2 06/25/17 08:40 73 06/25/17 07:58 98.6 20 122/53 96 06/25/17 04:40 Nasal Cannula 1.0 06/21/17 17:40 32 Intake and Output 06/24/17 06/24/17 06/25/17 14:59 22:59 06:59 Intake Total 100 ml 970 ml 60 ml Output Total 900 ml 850 ml Balance 100 ml 70 ml -790 ml Exam General: Chronically ill looking male with mild shortness of breath upon exertion. HEENT: Normocephalic, Atraumatic, No laceration or hematoma; Eyes: PEERL, Conjunctiva clear, Anicteric sclera Neck: Supple without any lymphadenopathy, nontender, no JVD, no carotid bruits, trachea midline, no thyromegaly Cardiac: Elevated JVD. S1, S2 auscultated, regular rhythm and rate, no mumurs or gallop Pulmonary: Chest clear to auscultation. Diminished bibasilar. GI: Abdomen normal to inspection. Soft, non tender, non- distended, no masses, no rebound tenderness or guarding. Bowel sounds active on all four quadrants Genitourinary: Deferred Extremities: WEAK. No cyanosis, clubbing, or edema. Pulses [2+] bilaterally. Full ROM on all four extremities. No focal weakness appreciated. Neurologic: Alert to person, place, time, and situation. Affect appropriate, intact sensation. Skin: Clean,dry, and intact. No ecchymosis, no rashes, or lesions Results Result Diagram: 06/24/17 0734 06/25/17 0806 Results 24 hrs Laboratory Tests Test 06/24/17 12:03 06/24/17 17:25 06/24/17 21:55 06/25/17 08:06 Bedside Glucose 111 127 147 Sodium Level 136 Potassium Level 3.5 Chloride Level 93 L Carbon Dioxide Level 33 H Anion Gap 14 Blood Urea Nitrogen 42 H Creatinine 1.51 H Glucose Level 101 Calcium Level 8.5 Phosphorus Level 4.0 Magnesium Level 2.3 Test 06/25/17 08:25 Bedside Glucose 102 Medications Medications Current Medications Lorazepam (Ativan) 0.5 mg Q8H PRN PO ANXIETY; Start 06/21/17 at 09:00 Ondansetron HCl (Zofran Inj) 4 mg Q6H PRN IV NAUSEA AND/OR VOMITING; Start 06/21/17 at 09:00 Nitroglycerin (Nitroglycerin (Sl Tab) 0.4 Mg) 1 tab Q5M PRN SL CHEST PAIN; Start 06/21/17 at 09:00 Morphine Sulfate (morphine) 2 mg Q4H PRN IV PAIN LEVEL 7-10; Start 06/21/17 at 09:00 Aspirin (Aspirin) 81 mg DAILY PO Last administered on 06/25/17 08:29; Admin Dose 81 MG; Start 06/21/17 at 09:00 Acetaminophen/ Hydrocodone Bitart ([place] (5/325)) 1 tab Q4H PRN PO PAIN Last administered on 06/23/17 22:49; Admin Dose 1 TAB; Start 06/21/17 at 09:00 Magnesium Oxide 400 mg 400 mg BID PO Last administered on 06/23/17 08:49; Admin Dose 400 MG; Start 06/21/17 at 09:00; Status Future Hold Levofloxacin/ Dextrose (Levaquin 500mg/ D5W 100 ml (Pmx)) 100 ml @ 100 mls/hr DAILY IVPB Last administered on 06/25/17 08:29; Admin Dose 100 MLS/HR; Start 06/21/17 at 09:00 Midodrine (Proamatine) 2.5 mg BID@17 PO Last administered on 06/25/17 09: 49; Admin Dose 2.5 MG; Start 06/21/17 at 09:30 Diagnostic Test (Pha) (Accu-Chek) 1 ea 02 XX ; Start 06/22/17 at 02:00 Miscellaneous Information 1 ea NOTE XX ; Start 06/21/17 at 15:00 Glucose (Glutose) 15 gm Q15M PRN PO DECREASED GLUCOSE; Start 06/21/17 at 15:00 Glucose (Glutose) 22.5 gm Q15M PRN PO DECREASED GLUCOSE; Start 06/21/17 at 15: 00 Dextrose (D50w Syringe) 25 ml Q15M PRN IV DECREASED GLUCOSE; Start 06/21/17 at 15:00 Dextrose (D50w Syringe) 50 ml Q15M PRN IV DECREASED GLUCOSE; Start 06/21/17 at 15:00 Glucagon (Glucagen) 1 mg Q15M PRN IM DECREASED GLUCOSE; Start 06/21/17 at 15:00 Glucose (Glutose) 15 gm Q15M PRN BUCCAL DECREASED GLUCOSE; Start 06/21/17 at 15 :00 Megestrol Acetate (Megace Susp) 400 mg BID PO Last administered on 06/24/17 08:17; Admin Dose 400 MG; Start 06/21/17 at 21:00 Atorvastatin Calcium (Lipitor) 20 mg QHS PO Last administered on 06/24/17 21: 55; Admin Dose 20 MG; Start 06/22/17 at 21:00 Clopidogrel Bisulfate (plaVIX) 75 mg DAILY PO Last administered on 06/25/17 08:29; Admin Dose 75 MG; Start 06/23/17 at 09:00 Terazosin HCl (Hytrin) 2 mg HS PO Last administered on 06/24/17 23:24; Admin Dose 2 MG; Start 06/23/17 at 21:00 Tiotropium [place] (Spiriva) 1 inh DAILY INH Last administered on 06/25/17 08 :26; Admin Dose 1 INH; Start 06/23/17 at 09:00 Famotidine (Pepcid) 20 mg HS PO Last administered on 06/24/17 21:55; Admin Dose 20 MG; Start 06/22/17 at 21:00 Prednisone (Prednisone) 20 mg DAILY PO Last administered on 06/25/17 08:29; Admin Dose 20 MG; Start 06/24/17 at 09:00 Senna (Senokot) 2 tab BID PRN PO CONSTIPATION Last administered on 06/25/17 08:29; Admin Dose 2 TAB; Start 06/24/17 at 12:30 MALAIKA PABLO NP Jun 25, 2017 11:30
--- NOTE | 2017-06-25 11:55 | PN ---
DATE: 06/25/2017 SUBJECTIVE: The patient is stable. No events overnight. OBJECTIVE: VITAL SIGNS: Blood pressure is 122/53, respirations 20, pulse 72, temperature 98.6. HEENT: Head is normocephalic. NECK: Supple. HEART: Regular rate. LUNGS: Show diminished breath sounds at base. ABDOMEN: Soft, nontender to palpation. No rebound or guarding. EXTREMITIES: Negative for clubbing, cyanosis, no edema. DERMATOLOGIC: No rashes. MUSCULOSKELETAL: No joint effusions. NEUROLOGIC: No focal deficits. MEDICATIONS: The patient's medications have been reviewed. LABORATORY DATA: Shows urinalysis is bland ____ less than 1%, a protein/creatinine ratio of approxi mately 200 mg per gram of creatinine. IMAGING STUDIES: Patient's renal ultrasound also was reviewed that showed small right upper kidney with hypoechoic findings, possible complex cyst. ASSESSMENT AND PLAN: 1. Nonoliguric acute kidney injury with unknown baseline creatinine. Etiology is likely secondary to hemodynamics. The patient's ____ currently is less than 1% consistent with possible prerenal marylu ology. Renal ultrasound also reviewed, showed possible complex cyst, but no evidence of obstruction . Plan at this point is to continue to monitor renal function closely. We would deescalate diureti c therapy if patient's renal function should continue to worsen, but otherwise continue supportive c are, renally dose meds, avoid nephrotoxins. 2. Metabolic alkalosis. The patient is status post Diamox. We will continue to monitor. 3. Hypokalemia, improved. 4. Anemia. Monitor hemoglobin and hematocrit levels. 5. Mineral bone disorder. Monitor calcium and phosphorus levels. 6. Acute respiratory failure secondary to congestive heart failure and chronic obstructive pulmonar y disease. Continue to monitor. 7. Acute on chronic systolic heart failure. The patient is status post diuretic therapy. We will continue to monitor and holding diuretics at this time in the setting of acute kidney injury. 8. Possible complex cyst. We will consider CT scan. 9. Ischemic cardiomyopathy. Continue to monitor. Follow up with cardiology. 10. History of coronary artery disease. Continue current treatment plan. Dictated By: JULIAN HERRERA/SHILPA Conf#: [id number] DID#: [id number]
--- NOTE | 2017-06-25 13:58 | RADRPT ---
PROCEDURE: XR Chest. CLINICAL INDICATION: Shortness of breath TECHNIQUE: A single AP view of the chest was obtained. COMPARISON: DR CHEST 06/21/2017; ROSA CHEST 02/23/2015; ROSA CHEST 02/21/2015; ROSA CHEST 02/09/2015 FINDINGS: Lung volumes are low with compressive changes and crowding of the central pulmonary vascular marking s with bibasilar atelectasis . No focal airspace opacity, pleural effusion or pneumothorax is seen. The cardiomediastinal silhouette is mildly enlarged. Calcifications are seen within the aortic arc h. The osseous structures demonstrate senescent changes. IMPRESSION: 1. Low lung volumes with compressive changes and bibasilar atelectasis. 2. Mild cardiomegaly and aortic atherosclerosis. RPTAT: HH .Kathleen Zaragoza MD, MD Date Time Electronically viewed and signed by .Kathleen Zaragoza MD, on 06/25/2017 13:57 .G/
[2017-06-25 14:41] LABS: MICROALBUMIN 1.4 mg/dL
--- NOTE | 2017-06-25 19:53 | CONS ---
Date/Time of Note Date/Time of Note DATE: 06/25/17 TIME: 19:48 Assessment/Plan Assessment/Plan Chief Complaint/Hosp Course Acute on chronic systolic/diastolic heart failure: Euvolemic on my exam, CXR clear, Cr worsening with diuresis COPD exacerbation with possible acute bronchitis: likely main reason for current symptoms Ischemic cardiomyopathy, LVEF 45-50%, s/p remote PCI 01/25 (incomplete data) Acute on chronic renal failure: likely from overdiuresis Suspect h/o symptomatic orthostatic hypotension, on Midodrine DM Reported history of atrial fibrillation, currently in sinus on Amiodarone Dyslipidemia -agree with holding diuresis as pt euvolemic to dry -continue Amiodarone 200 mg daily -unclear why on dual antiplatelets, defer to outpt -ontinue Lipitor 10 mg qhs -continue Midodrine 2.5 mg bid -COPD management per primary Problems: Consultation Date/Type/Reason Admit Date/Time Jun 21, 2017 at 04:21 Initial Consult Date 06/22/17 Type of Consultation: Cardiology 24 HR Interval Summary Free Text/Dictation No o/n events. remains SOB. Per daughter this has been going on for a while at home and limits pt to only a few steps. He notes he feels better but the family does not agree. He was a heavy smoker in the past. Exam/Review of Systems Vital Signs Vitals Vital Signs Date Time Temp Pulse Resp B/P Pulse Ox O2 Delivery O2 Flow Rate FiO2 06/25/17 16:28 69 06/25/17 16:10 1.0 06/25/17 15:59 98.2 19 133/63 99 06/25/17 14:00 Nasal Cannula 06/21/17 17:40 32 Intake and Output 06/24/17 06/24/17 06/25/17 15:00 23:00 07:00 Intake Total 100 ml 970 ml 60 ml Output Total 900 ml 850 ml Balance 100 ml 70 ml -790 ml Exam Constitutional: alert, oriented Psych: nl mood/affect, no complaints Head: atraumatic, normocephalic Neck: No jvd Respiratory: clear to auscultation, No crackles/rales Cardiovascular: regular rate and rhythm, No edema, No systolic murmur Gastrointestinal: non-tender, soft Neurological: nl mental status, nl speech Results Result Diagram: 06/24/17 0734 06/25/17 0806 Results 24 hrs Laboratory Tests Test 06/24/17 21:55 06/25/17 08:06 06/25/17 08:25 06/25/17 12:23 Bedside Glucose 147 102 101 Sodium Level 136 Potassium Level 3.5 Chloride Level 93 L Carbon Dioxide Level 33 H Anion Gap 14 Blood Urea Nitrogen 42 H Creatinine 1.51 H Glucose Level 101 Calcium Level 8.5 Phosphorus Level 4.0 Magnesium Level 2.3 Test 06/25/17 17:28 Bedside Glucose 122 Medications Medications Current Medications Lorazepam (Ativan) 0.5 mg Q8H PRN PO ANXIETY; Start 06/21/17 at 09:00 Ondansetron HCl (Zofran Inj) 4 mg Q6H PRN IV NAUSEA AND/OR VOMITING; Start 06/21/17 at 09:00 Nitroglycerin (Nitroglycerin (Sl Tab) 0.4 Mg) 1 tab Q5M PRN SL CHEST PAIN; Start 06/21/17 at 09:00 Morphine Sulfate (morphine) 2 mg Q4H PRN IV PAIN LEVEL 7-10; Start 06/21/17 at 09:00 Aspirin (Aspirin) 81 mg DAILY PO Last administered on 06/25/17 08:29; Admin Dose 81 MG; Start 06/21/17 at 09:00 Acetaminophen/ Hydrocodone Bitart ([place] (5/325)) 1 tab Q4H PRN PO PAIN Last administered on 06/23/17 22:49; Admin Dose 1 TAB; Start 06/21/17 at 09:00 Magnesium Oxide (Mag-Ox 400) 400 mg BID PO Last administered on 06/23/17 08: 49; Admin Dose 400 MG; Start 06/21/17 at 09:00; Status Future Hold Midodrine (Proamatine) 2.5 mg BID@ PO Last administered on 06/25/17 09: 49; Admin Dose 2.5 MG; Start 06/21/17 at 09:30 Diagnostic Test (Pha) (Accu-Chek) 1 ea 02 XX ; Start 06/22/17 at 02:00 Miscellaneous Information 1 ea NOTE XX ; Start 06/21/17 at 15:00 Glucose (Glutose) 15 gm Q15M PRN PO DECREASED GLUCOSE; Start 06/21/17 at 15:00 Glucose (Glutose) 22.5 gm Q15M PRN PO DECREASED GLUCOSE; Start 06/21/17 at 15: 00 Dextrose (D50w Syringe) 25 ml Q15M PRN IV DECREASED GLUCOSE; Start 06/21/17 at 15:00 Dextrose (D50w Syringe) 50 ml Q15M PRN IV DECREASED GLUCOSE; Start 06/21/17 at 15:00 Glucagon (Glucagen) 1 mg Q15M PRN IM DECREASED GLUCOSE; Start 06/21/17 at 15:00 Glucose (Glutose) 15 gm Q15M PRN BUCCAL DECREASED GLUCOSE; Start 06/21/17 at 15 :00 Megestrol Acetate (Megace Susp) 400 mg BID PO Last administered on 06/24/17 08:17; Admin Dose 400 MG; Start 06/21/17 at 21:00 Atorvastatin Calcium (Lipitor) 20 mg QHS PO Last administered on 06/24/17 21: 55; Admin Dose 20 MG; Start 06/22/17 at 21:00 Clopidogrel Bisulfate (plaVIX) 75 mg DAILY PO Last administered on 06/25/17 08:29; Admin Dose 75 MG; Start 06/23/17 at 09:00 Terazosin HCl (Hytrin) 2 mg HS PO Last administered on 06/24/17 23:24; Admin Dose 2 MG; Start 06/23/17 at 21:00 Tiotropium [place] (Spiriva) 1 inh DAILY INH Last administered on 06/25/17 08 :26; Admin Dose 1 INH; Start 06/23/17 at 09:00 Famotidine (Pepcid) 20 mg HS PO Last administered on 06/24/17 21:55; Admin Dose 20 MG; Start 06/22/17 at 21:00 Senna (Senokot) 2 tab BID PRN PO CONSTIPATION Last administered on 06/25/17 08:29; Admin Dose 2 TAB; Start 06/24/17 at 12:30 Prednisone (Prednisone) 10 mg DAILY PO ; Start 06/26/17 at 09:00 Bisacodyl (Dulcolax) 10 mg DAILY PRN PO CONSTIPATION; Start 06/25/17 at 12:00 Levofloxacin (Levaquin) 500 mg DAILY@06 PO ; Start 06/26/17 at 06:00 MORRIS LOPEZ Jun 25, 2017 19:53
[2017-06-25] MEDS: ATORVASTATIN 20 MG TAB PO SCH (21:14)
[2017-06-25] MEDS: FAMOTIDINE 20 MG TAB PO SCH (21:14)
[2017-06-25] MEDS: TERAZOSIN 2 MG CAP PO SCH (21:51)
[2017-06-26] VITALS (10 sets, daily range): BP systolic 114–138; BP diastolic 57–63; PULSE 65–69; RESP 16–18
[2017-06-26] MEDS: ALBUTEROL/IPRATROPIUM (NEB) 3 ML AMP HHN SCH ×4 (00:38→14:22)
[2017-06-26] MEDS: ACCU-CHEK XX SCH (02:01)
[2017-06-26] MEDS ORDERED: LEVOFLOXACIN 500 MG TAB PO SCH (06:00)
[2017-06-26] MEDS: INSULIN ASPART [NOVOLOG] 3 ML PEN SC SCH ×2 (08:00→12:00)
[2017-06-26] MEDS ORDERED: predniSONE 10 MG TAB PO SCH (09:00)
[2017-06-26] MEDS: MEGESTROL (40 MG/ML) 10ML CUP PO SCH (09:00)
--- NOTE | 2017-06-26 09:03 | CONS ---
Date/Time of Note Date/Time of Note DATE: 06/26/17 TIME: 09:02 Assessment/Plan Assessment/Plan Chief Complaint/Hosp Course Acute on chronic systolic/diastolic heart failure: Euvolemic on my exam, CXR clear, Cr worsening with diuresis COPD exacerbation with possible acute bronchitis: likely main reason for current symptoms Ischemic cardiomyopathy, LVEF 45-50%, s/p remote PCI 01/25 (incomplete data) Acute on chronic renal failure: likely from overdiuresis Suspect h/o symptomatic orthostatic hypotension, on Midodrine DM Reported history of atrial fibrillation, currently in sinus on Amiodarone Dyslipidemia -agree with holding diuresis as pt euvolemic to dry -consider non contrast chest CT to eval for other process including ILD -continue Amiodarone 200 mg daily -unclear why on dual antiplatelets, defer to outpt -continue Lipitor 10 mg qhs -continue Midodrine 2.5 mg bid -COPD management per primary Problems: Consultation Date/Type/Reason Admit Date/Time Jun 21, 2017 at 04:21 Initial Consult Date 06/22/17 Type of Consultation: Cardiology 24 HR Interval Summary Free Text/Dictation No o/n events. Exam/Review of Systems Vital Signs Vitals Vital Signs Date Time Temp Pulse Resp B/P Pulse Ox O2 Delivery O2 Flow Rate FiO2 06/26/17 08:23 68 06/26/17 08:12 98.2 16 126/58 96 06/26/17 04:24 Nasal Cannula 3.0 Intake and Output 06/25/17 06/25/17 06/26/17 15:00 23:00 07:00 Intake Total 100 ml 550 ml 150 ml Output Total 950 ml 800 ml Balance 100 ml -400 ml -650 ml Exam Constitutional: alert, oriented Psych: nl mood/affect, no complaints Head: atraumatic, normocephalic Neck: No jvd Respiratory: clear to auscultation, No crackles/rales Cardiovascular: regular rate and rhythm, No edema, No systolic murmur Gastrointestinal: non-tender, soft Neurological: nl mental status, nl speech Results Result Diagram: 06/24/17 0734 06/25/17 0806 Results 24 hrs Laboratory Tests Test 06/25/17 12:23 06/25/17 17:28 06/25/17 21:13 06/26/17 08:27 Bedside Glucose 101 122 152 100 Medications Medications Current Medications Lorazepam (Ativan) 0.5 mg Q8H PRN PO ANXIETY; Start 06/21/17 at 09:00 Ondansetron HCl (Zofran Inj) 4 mg Q6H PRN IV NAUSEA AND/OR VOMITING; Start 06/21/17 at 09:00 Nitroglycerin (Nitroglycerin (Sl Tab) 0.4 Mg) 1 tab Q5M PRN SL CHEST PAIN; Start 06/21/17 at 09:00 Morphine Sulfate (morphine) 2 mg Q4H PRN IV PAIN LEVEL 7-10; Start 06/21/17 at 09:00 Aspirin (Aspirin) 81 mg DAILY PO Last administered on 06/25/17 08:29; Admin Dose 81 MG; Start 06/21/17 at 09:00 Acetaminophen/ Hydrocodone Bitart ([place] (5/325)) 1 tab Q4H PRN PO PAIN Last administered on 06/23/17 22:49; Admin Dose 1 TAB; Start 06/21/17 at 09:00 Magnesium Oxide (Mag-Ox 400) 400 mg BID PO Last administered on 06/23/17 08: 49; Admin Dose 400 MG; Start 06/21/17 at 09:00; Status Future Hold Midodrine (Proamatine) 2.5 mg BID@ PO Last administered on 06/25/17 09: 49; Admin Dose 2.5 MG; Start 06/21/17 at 09:30 Diagnostic Test (Pha) (Accu-Chek) 1 ea 02 XX Last administered on 06/26/17 02 :01; Admin Dose 1 EA; Start 06/22/17 at 02:00 Miscellaneous Information 1 ea NOTE XX ; Start 06/21/17 at 15:00 Glucose (Glutose) 15 gm Q15M PRN PO DECREASED GLUCOSE; Start 06/21/17 at 15:00 Glucose (Glutose) 22.5 gm Q15M PRN PO DECREASED GLUCOSE; Start 06/21/17 at 15: 00 Dextrose (D50w Syringe) 25 ml Q15M PRN IV DECREASED GLUCOSE; Start 06/21/17 at 15:00 Dextrose (D50w Syringe) 50 ml Q15M PRN IV DECREASED GLUCOSE; Start 06/21/17 at 15:00 Glucagon (Glucagen) 1 mg Q15M PRN IM DECREASED GLUCOSE; Start 06/21/17 at 15:00 Glucose (Glutose) 15 gm Q15M PRN BUCCAL DECREASED GLUCOSE; Start 06/21/17 at 15 :00 Megestrol Acetate (Megace Susp) 400 mg BID PO Last administered on 06/25/17 21:14; Admin Dose 400 MG; Start 06/21/17 at 21:00 Atorvastatin Calcium (Lipitor) 20 mg QHS PO Last administered on 06/25/17 21: 14; Admin Dose 20 MG; Start 06/22/17 at 21:00 Clopidogrel Bisulfate (plaVIX) 75 mg DAILY PO Last administered on 06/25/17 08:29; Admin Dose 75 MG; Start 06/23/17 at 09:00 Terazosin HCl (Hytrin) 2 mg HS PO Last administered on 06/25/17 21:51; Admin Dose 2 MG; Start 06/23/17 at 21:00 Tiotropium [place] (Spiriva) 1 inh DAILY INH Last administered on 06/25/17 08 :26; Admin Dose 1 INH; Start 06/23/17 at 09:00 Famotidine (Pepcid) 20 mg HS PO Last administered on 06/25/17 21:14; Admin Dose 20 MG; Start 06/22/17 at 21:00 Senna (Senokot) 2 tab BID PRN PO CONSTIPATION Last administered on 06/25/17 08:29; Admin Dose 2 TAB; Start 06/24/17 at 12:30 Prednisone (Prednisone) 10 mg DAILY PO ; Start 06/26/17 at 09:00 Bisacodyl (Dulcolax) 10 mg DAILY PRN PO CONSTIPATION; Start 06/25/17 at 12:00 Levofloxacin (Levaquin) 500 mg DAILY@06 PO Last administered on 06/26/17 06: 02; Admin Dose 500 MG; Start 06/26/17 at 06:00 MORRIS LOPEZ Jun 26, 2017 09:03
[2017-06-26 09:27] LABS: CALCIUM 8.6 mg/dl (8.4-10.2); CREATININE 1.22 mg/dl (0.61-1.24); MAGNESIUM 2.3 mg/dl (1.7-2.5); POTASSIUM 3.7 mmol/L (3.5-5.1)
--- NOTE | 2017-06-26 09:41 | PDOCDIS ---
Discharge Instructions CONDITION Patient Condition: Stable HOME CARE INSTRUCTIONS: Special Diet: Carb Controlled FOLLOW UP/APPOINTMENTS Follow-up Plan 1Follow-up with Dr. Mcbride (Pou[employer]le) in 1 week. [id number] [facility] [address] [place] [address] Office 2.Follow up with primary care physician in 1 week If you don't have one please let someone know, we can give you resources that may help you pick one. You may also call your insurance company to assign one to you. Review your medication list with your nurse before leaving and if you need new prescriptions please let your nurse know. I may have made changes to your home medications or given you new prescriptions, please let your primary doctor know as well. Stay compliant with your medications and report any side effects to your PCP or pharmacist. Return to the ER if you have any concerns and cannot reach your doctors or call your insurance company, they usually have a nurse that can help you. 3. Call 911 or go to the nearest emergency room if experiencing loss of consciousness, dizziness, chest pain, shortness of breath, vomiting/abdominal pain, speech difficulties, motor weakness or any unusual symptoms. 4. Follow-up with outpatient health safety specialist in 1 week. MALIAKA PABLO NP Jun 26, 2017 09:41
[2017-06-26] MEDS ORDERED: FURO-110 PO (09:44)
[2017-06-26] MEDS ORDERED: ALBU8.5H3 INH (09:44)
[2017-06-26] MEDS ORDERED: MEGE400O4 PO (09:44)
--- NOTE | 2017-06-26 09:56 | DS ---
Date/Time of Note Date/Time of Note DATE: 06/26/17 TIME: 09:53 Discharge Summary Admission/Discharge Info Admit Date/Time Jun 21, 2017 at 04:21 Discharge Date/Time Discharge Diagnosis 1. Acute on chronic systolic/diastolic heart failure. Symptoms resolved.ECHO WITH ef 45-50% 2. COPD exacerbation with possible acute bronchitis versus pneumonia. Stable 3. Metabolic alkalosis, likely contraction alkalosis vs 2/2 magnesium oxide. Stable 4. OSMAN on likely CKD. OSMAN likely 2/2 hemodynamics/Diuretics-indued. Renal function stabilized. 5. Ischemic cardiomyopathy with last LVEF 45%, s/p PCI 01/25 6. Anemia of chronic illness. 7. Reported history of prostate disorders. 8. Prediabetes with A1c 6.0. 9. Dyslipidemia 10. Debility 11. Renal cyst. Needs outpatient follow-up. Patient Condition: Stable Consults Dr. Mcbride, nephrology , cardiology Procedures 06/21/2017. Chest x-ray FINDINGS: Enlargement of the cardiac silhouette is again seen. Tortuosity and ectasia thoracic aorta again seen. There is minimal prominence of the lung interstitium likely minimal chronic changes. Hypoinflation lungs and bibasilar atelectasis. The patient is mildly rotated to the right. ECG leads projected over the chest. Calcification in the aortic arch. IMPRESSION: Hypoinflation lungs and bibasilar atelectasis. Enlargement of the cardiac silhouette again seen. 06/21/2017. 2D echocardiogram. Findings Left Ventricle: Normal left ventricular cavity size. Sigmoid septum. Mild left ventricular systolic dysfunction. Ejection fraction is visually estimated at 4550 %. Tissue Doppler/Mitral Doppler indices are consistent with impaired relaxation (Stage I diastolic dysfunction). E/E`=8. Right Ventricle: Normal right ventricular size. Normal right ventricular systolic function. Left Atrium: The left atrium is normal in size. Right Atrium: The right atrium is normal in size. Atrial Septum: Not well visualized. Mitral Valve: Normal appearance of the mitral valve. Appears to be mild chordal calcification. Trace mitral regurgitation. Aortic Valve: No hemodynamically significant aortic stenosis by doppler. Aortic cusps appear mildly calcified. Trileaflet aortic valve. Mild aortic valve regurgitation. Tricuspid Valve: Normal appearance of the tricuspid valve. There is trace tricuspid regurgitation. Pulmonic Valve: Normal pulmonic valve appearance. There is mild pulmonic regurgitation. Pericardium: Normal pericardium with no significant pericardial effusion. Aorta: Normal aortic root. IVC: The IVC is not well visualized. Pulmonary Artery: Normal pulmonary artery size. Conclusions 1. The left ventricle is normal in size with mildly reduced systolic function. The inferior wall is hypokinetic. 2. Estimated left ventricular ejection fraction of 45-50%. 3. Grade 1 diastolic dysfunction. 06/23/2017. FINDINGS: The right kidney measures 9.1 cm in length. The left kidney measures 9.6 cm in length. 4.2 x 3.3 x 4.8 cm right kidney upper pole hypoechoic finding has slightly irregular margins. Probable 1.4 x 1.2 cm left kidney upper pole hypoechoic finding, not imaged in the transverse plane. Questionable subcentimeter left kidney upper pole isoechoic focal bulging, not seen in the transverse plane. Of note, kidney stones may not be visualized by sonography. No abnormal perirenal fluid collections seen. No hydronephrosis seen. Curtis catheter is within a predominantly decompressed bladder. IMPRESSION: 1. Small - moderate sized right kidney upper pole hypoechoic finding does not have circumscribed margins; thus it is not consistent with a simple cyst based upon this study. It could be a complex cyst. 2. Probable too small to characterize left kidney upper pole hypoechoic finding and questionable subcentimeter left kidney isoechoic focal bulging; these findings were not imaged in the transverse plane and are thus incompletely characterized. 06/25/2017. Chest x-ray. IMPRESSION: 1. Low lung volumes with compressive changes and bibasilar atelectasis. 2. Mild cardiomegaly and aortic atherosclerosis. Hospital Course This is a 87-year-old male with multiple comorbidities including COPD, chronic kidney disease, ischemic cardiomyopathy, chronic anemia, prostatectomy, prediabetes, dyslipidemia, debility, admitted to the emergency room for presented to the emergency room for evaluation of BLE swelling and shortness of breath upon exertion with productive cough. Patient was noted in acute on chronic systolic and diastolic congestive heart failure. Patient was treated with diuresis. He was also noted with COPD exacerbation which was treated with steroids, [id number] bronchodilators and oxygen as needed. Patient was also empirically treated with Levaquin for possible acute bronchitis versus early pneumonia. His clinical symptoms improved. Patient was continued on his home medication for underlying comorbid conditions. Patient was noted with echocardiogram ejection fraction 45-50%. During the course of hospitalization, patient had nephrology evaluation for acute kidney injury which is secondary to hemodynamics versus diuretic induced. He was also noted with metabolic alkalosis likely contraction alkalosis with diuretics versus magnesium oxide that patient takes at home. Patient was treated with Diamox. Alkalosis resolved. Patient was also noted with incidental finding of renal cyst for which outpatient follow-up was recommended. At this time, patient is feeling back to baseline. Due to his debility, patient was evaluated by physical therapy. Best recommendation was discharging patient to an extended care facility for which patient's family is not receptive at this time. They wanted to continue with her current patient's current home health agency. I also had discussion with patient's family regarding goals of care and they wanted to continue full code at this time. I have also discussed patient's condition with his primary care doctor who reported to continue the same home health and he will follow-up patient in his office. He will also discuss goals of care with patient's family. Currently, patient is stable for outpatient monitoring. Patient was recommended to follow-up with Dr. Mcbride, ground systems engineer in 1 weeks. He was also recommended to continue following up with his outpatient glaze maker. Patient's family verbalized discharge instructions. Disposition: Home with home health service. Approximately 60 minutes was spent in coordinating the discharge on this patient. Patient was in collaboration with [facility] Furosemide* (Lasix*) 20 Mg Tablet, 20 MG PO .EVERY OTHER DAY, #30 TAB 20 mg p.o. every other day. Prov:MALAIKA PABLO V. VALIDATION INTERN 06/26/17 Albuterol Sulfate* (Proair HFA*) 8.5 Gm Hfa.aer.ad, 2 PUFF INH Q4H Y for WHEEZING AND SOB, #1 INHALER Prov:MALAIKA PABLO V. VALIDATION INTERN 06/26/17 Megestrol Acetate (Megestrol Acetate) 400 Mg/10 Ml Oral.susp, 400 MG PO BID, # 60 DOSE Prov:PABLOJANIEA V. VALIDATION INTERN 06/26/17 Reported Medications Magnesium Oxide (Laxative Dietary Supplement) 500 Mg Tablet, 250 MG PO BID, #180 06/21/17 Tiotropium [place]* (Spiriva*) 18 Mcg Cap.w.dev, 1 CAP INHALATION DAILY, #30 CAP 06/21/17 Fluticasone/Vilanterol (Breo Ellipta 200-25 Mcg INH) 1 Each Blst.w.dev, 1 PUFF INHALATION QHS, #1 INHALER 06/21/17 Atorvastatin Calcium* (Atorvastatin Calcium*) 20 Mg Tablet, 20 MG PO QHS, #30 TAB 06/21/17 Terazosin Hcl* (Terazosin Hcl*) 2 Mg Capsule, 2 MG PO DAILY, CAP 06/21/17 Clopidogrel Bisulfate (Clopidogrel) 75 Mg Tablet, 75 MG PO DAILY, #30 TAB 06/21/17 Furosemide* (Furosemide*) 40 Mg Tablet, 40 MG PO DAILY, TAB 02/09/15 Discontinued Reported Medications Imipramine Hcl* (Imipramine Hcl*) 25 Mg Tablet, 25 MG PO HS, TAB 06/21/17 Ticagrelor* (Brilinta*) 90 Mg Tablet, 90 MG PO Q12, TAB 02/09/15 Simvastatin (Simvastatin) 10 Mg Tablet, 10 MG PO HS, TAB 02/09/15 Magnesium Oxide* (Magnesium Oxide*) 400 Mg Tablet, 400 MG PO BID, TAB 02/09/15 Ergocalciferol* (Drisdol* (Vitamin D2)) 50,000 Unit Capsule, 10212 UNITS PO ON MON&FRI, CAP 02/09/15 Aspirin* (Aspirin* Chew) 81 Mg Tab.chew, 81 MG PO DAILY, TAB.CHEW 02/09/15 Hydrocodone Bit-Acetaminophen* ([place]*) 5-325 Mg Tab, 1 TAB PO Q4H Y for PAIN, TAB 02/09/15 Discontinued Scripts Midodrine* (Midodrine*) 5 Mg Tab, 2.5 MG PO BID@09,17 for 28 Days, BOX Prov:MENA FLORES MD 03/01/15 Megestrol Acetate* (Megace*) 400 Mg/10 Ml Susp, 400 MG PO BID for 28 Days, BOTTLE Prov:MENA FLORES MD 03/01/15 Amiodarone Hcl* (Amiodarone Hcl*) 200 Mg Tab, 200 MG PO DAILY for 28 Days, BOTTLE Prov:MENA FLORES MD 03/01/15 Follow-up Plan 1Follow-up with Dr. Mcbride (Tenter Frame Operator) in 1 week. [id number] [facility] [address] [place] [address] Office 2.Follow up with primary care physician in 1 week If you don't have one please let someone know, we can give you resources that may help you pick one. You may also call your insurance company to assign one to you. Review your medication list with your nurse before leaving and if you need new prescriptions please let your nurse know. I may have made changes to your home medications or given you new prescriptions, please let your primary doctor know as well. Stay compliant with your medications and report any side effects to your PCP or pharmacist. Return to the ER if you have any concerns and cannot reach your doctors or call your insurance company, they usually have a nurse that can help you. 3. Call 911 or go to the nearest emergency room if experiencing loss of consciousness, dizziness, chest pain, shortness of breath, vomiting/abdominal pain, speech difficulties, motor weakness or any unusual symptoms. 4. Follow-up with outpatient glaze maker in 1 week. Primary Care Provider Not On Staff Doctor Pending Labs Laboratory Tests Test 06/25/17 12:23 06/25/17 17:28 06/25/17 21:13 06/26/17 08:27 Bedside Glucose 101mg/dL (70-220) 122mg/dL (70-220) 152mg/dL (70-220) 100mg/dL (70-220) Test 06/26/17 08:32 Sodium Level 135mmol/L (135-144) Potassium Level 3.7mmol/L (3.5-5.1) Chloride Level 95mmol/L (97-110) Carbon Dioxide Level 34mmol/L (21-31) Anion Gap 10 (8-16) Blood Urea Nitrogen 38mg/dl (7-20) Creatinine 1.22mg/dl (0.61-1.24) Glucose Level 96mg/dl (70-220) Calcium Level 8.6mg/dl (8.4-10.2) Phosphorus Level 4.0mg/dl (2.5-4.9) Magnesium Level 2.3mg/dl (1.7-2.5) MALAIKA PABLO NP Jun 26, 2017 09:56
[2017-06-26] MEDS: CLOPIDOGREL 75 MG TAB PO SCH (10:21)
[2017-06-26] MEDS: ASPIRIN 81 MG TAB PO SCH (10:21)
[2017-06-26] MEDS: MIDODRINE 2.5 MG TAB PO SCH (10:22)
[2017-06-26] MEDS: BISACODYL (EC) 5 MG TAB PO PRN ×2 (10:34→10:43)
[2017-06-26] MEDS: TIOTROPIUM 18 MCG CAPSULE INHA DEV INH SCH (12:52)
--- NOTE | 2017-06-26 16:55 | PN ---
DATE: 06/26/2017 SUBJECTIVE: The patient is stable. No events overnight. OBJECTIVE: VITAL SIGNS: Blood pressure is 126/58, respirations 16, pulse 69, temperature 98.2. HEENT: Head is normocephalic. NECK: Supple. HEART: Regular rate. LUNGS: Show diminished breath sounds at the base. ABDOMEN: Soft, nontender to palpation. No rebound or guarding. EXTREMITIES: Negative for clubbing, cyanosis, or edema. DERMATOLOGIC: No rashes. MUSCULOSKELETAL: No joint effusions. NEUROLOGIC: No change in exam. MEDICATIONS: The patient's medications have been reviewed. LABORATORY DATA: From 06/26/2017, is currently pending. ASSESSMENT AND PLAN: 1. Nonoliguric acute kidney injury with unknown baseline creatinine. Etiology is secondary to hemo dynamics, likely volume depletion. The patient's renal studies are consistent with prerenal etiolog y. At this point, would continue to encourage p.o. intake. Continue to hold diuretic therapy. Con tinue supportive care, renally dose all meds, avoid nephrotoxins. 2. Metabolic alkalosis. The patient is status post Diamox. We'll continue to monitor. 3. Hypokalemia, improved. 4. Anemia. Monitor any change. 5. Mineral bone disorder. Continue to monitor calcium and phosphorus levels. 6. Acute respiratory failure secondary to chronic obstructive pulmonary disease. Continue medical management. Continue nebulizers, consider pulmonary evaluation 7. Acute on chronic systolic heart failure. The patient is status post diuretic therapy. The guera ent appears euvolemic. Continue current medical management. Continue to hold diuretic therapy. Fo llow up with cardiology. 8. Renal cysts. Consider CT scan. 9. Ischemic cardiomyopathy. Continue current treatment plan. 10. History of coronary artery disease. Continue medical management. Dictated By: JULIAN ADKINS DO NR/NTS Conf#: [id number] DID#: [id number] CC: JULIAN ADKINS DO;*EndCC*
== END 2017-06-26 17:16 | disposition home or self-care (01) | DRG 291 ==
LOC: E/R 23:53 → MS4 06-21 04:21
PROVIDERS: ADMIT Internal Medicine; ATTEND Internal Medicine
DX: I50.43 Acute on chronic combined systolic (congestive) and diastolic (congestive) heart failure (principal); J96.01 Acute respiratory failure with hypoxia; N17.9 Acute kidney failure, unspecified; E87.3 Alkalosis; I13.0 Hypertensive heart and chronic kidney disease with heart failure and stage 1 through stage 4 chronic kidney disease, or unspecified chronic kidney disease; J44.1 Chronic obstructive pulmonary disease with (acute) exacerbation; E11.22 Type 2 diabetes mellitus with diabetic chronic kidney disease; N18.9 Chronic kidney disease, unspecified; J20.9 Acute bronchitis, unspecified; I25.5 Ischemic cardiomyopathy; I95.1 Orthostatic hypotension; I48.91 Unspecified atrial fibrillation; E78.5 Hyperlipidemia, unspecified; I25.10 Atherosclerotic heart disease of native coronary artery without angina pectoris; D63.8 Anemia in other chronic diseases classified elsewhere; E87.6 Hypokalemia; N28.1 Cyst of kidney, acquired
CPT/HCPCS: 36415; 36600; 71010; 76775; 80048; 80053; 80061; 81001; 81003; 82043; 82436; 82550; 82553; 82803; 82962; 83036; 83735; 83880; 84100; 84153; 84154; 84155; 84300; 84443; 84484; 85025; 85610; 85730; 87040; 87070; 87086; 93005; 93306; 94640; 94664; 96374; 96375; 96376; 97110; 97116; 97162; 97530; J1815; J1940; J1956; J2920; J7512